=== PATIENT | female | born 1980 | race Caucasian/White ===

== ENCOUNTER 2017-04-12 21:44 | Inpatient (IN) | payer OTHER ==
[~2017-04-12] VITALS: Ht 177.8 cm; Wt 123.0 kg
--- NOTE | 2017-04-12 22:00 | NUR ---
PT WHEELED TO ROOM
--- NOTE | 2017-04-12 22:27 | NUR ---
REMOVED DRESSING FROM LEFT FOOT. NOTED APPROXIMATELY 4 MM ROUND LESION ON LATERAL PLANTAR SURFACE.
[2017-04-12 22:31] LABS: HEMOGLOBIN 13.7 g/dl (12.0-16.0); IMMATURE GRANULOCYTES 0.6 % (0.0-1.0); MEAN CELL VOLUME 84.7 fL CALC (80.0-100.0); MEAN CORPUSCULAR HGB 28.3 pG CALC (26.0-32.0); MEAN CORPUSCULAR HGB CONC 33.4 g/L CALC (32.0-36.0); NEUT# 10.3 thou/uL (2.00-7.15); RED BLOOD COUNT 4.84 mill/uL (4.20-5.60); RED CELL DISTRI WIDTH 14.5 % (11.5-15.5)
[2017-04-12 22:37] LABS: ALBUMIN 4.4 g/dL (3.2-5.0); ALKALINE PHOSPHATASE 105 u/l (38-126); ANION GAP 17 (6-22 (CALC)); BILIRUBIN, TOTAL 0.4 mg/dL (0.0-1.4); BUN 10 mg/dL (7-17); BUN/CREATININE RATIO 15 (12-20 (CALC)); CARBON DIOXIDE 26 mmol/l (22-30); CHLORIDE 101 mmol/l (95-108); CREATININE 0.6 mg/dL (0.5-1.0); GFR > 60 ML/MIN (>=60 (CALC)); GFR FOR AFR.AMER. > 60 ML/MIN (>=60 (CALC)); POTASSIUM 4.1 mmol/l (3.5-5.1); SGOT/AST 38 u/l (14-36); SGPT/ALT 58 u/l (9-52); SODIUM 140 mmol/l (137-146); TOTAL PROTEIN 7.5 g/dL (6.3-8.2)
--- NOTE | 2017-04-12 23:30 | NUR ---
RESTING QUIETLY IN NO APPARENT DISTRESS.
[2017-04-12] MEDS ORDERED: LISINOPRIL10 M1 PO (23:39)
[2017-04-12] MEDS ORDERED: METFORMIN HCL850 MG PO (23:39)
[2017-04-12] MEDS ORDERED: GLIMEPIRIDE4 MG PO (23:40)
[2017-04-12] MEDS ORDERED: LEVOTHYROXIN88 MC1 PO (23:41)
--- NOTE | 2017-04-13 00:19 | NUR ---
Admission Note Report Given to: DONNA OBREGON Transported by: Wheelchair X Stretcher Transported with: X Nurse Transporter X Patent IV O2 Interior Horticulturist
[2017-04-13 00:25] VITALS: BP 160/87
--- NOTE | 2017-04-13 00:25 | NUR ---
PT ARRIVED TO UNIT VIA STRETCHER WITH ER STAFF. AMBULATED TO BED WITH A LIMP. C/O SEVERE PAIN 10/10 TO LEFT FOOT. RESPIRATIONS EVEN AND UNLABORED ON ROOM AIR. ORIENTED TO ROOM AND CALL LIGHT SYSTEM. PLAN OF CARE DISCUSSED INCLUDING PODIETRY CONSULT. PT ENCOURAGED TO VERBALIZE CONCERNS. STATES UNDERSTANDING. SAFETY MEASURES IN PLACE. CALL LIGHT WITHIN REACH.
--- NOTE | 2017-04-13 00:25 | NUR ---
ART INFUSING WITH VANCO TO FOLLOW. TRANSPORTED TO FLOOR.
--- NOTE | 2017-04-13 01:51 | NUR ---
DIABETIC ULCER TO LATERAL ASPECT OF LEFT FOOT CLEANSED WITH NS AND NEW DRESSING APPLIED WITH TELFA AND KERLEX. WOUND IS CURRENLTY NOT DRAINING; ED STATES THERE WAS A LARGE AMOUNT OF SEROUS DRAINAGE. PHOTO OF ULCER IN CHART. PECOCET WAS GIVEN FOR FOOT PAIN; PT STATES THAT IT WAS NOT EFFECTIVE. NONPHARMACEUTICAL INTERVENTIONS IN PLACE TO ALLEVIATE PAIN; WILL REASSESS. IV ABT INFUSING AT THIS TIME; NO ADVERSE EFFECTS NOTED; SHE DOES HAVE SOME FACIAL FLUSHING. UP TO BATHROOM TO VOID. SAFETY MEASURES IN PLACE. CALL LIGHT WITHIN REACH.
[2017-04-13 04:00] VITALS: BP 119/67
[2017-04-13 04:05] LABS: URINE BILIRUBIN - DIPSTICK NEGATIVE (NEGATIVE); URINE BLOOD DIPSTICK NEGATIVE (NEGATIVE); URINE COLOR YELLOW; URINE GLUCOSE - DIPSTICK >=1000 mg/dL (NEGATIVE); URINE KETONE TRACE mg/dL (NEGATIVE); URINE LEUK ESTERASE NEGATIVE (Negative); URINE NITRITE - DIPSTICK NEGATIVE (Negative); URINE PROTEIN - DIPSTICK NEGATIVE (NEG-TRACE); URINE UROBILINOGEN - DIPSTICK 0.2 E.U./dL (0.2)
[2017-04-13 04:07] LABS: URINE CLARITY CLEAR
[2017-04-13 04:08] LABS: BARBITURATES NEGATIVE (NEGATIVE); COCAINE NEGATIVE (NEGATIVE); METHADONE NEGATIVE (NEGATIVE); OXCYCODONE NEGATIVE (NEGATIVE); TETRAHYDROCANNABIONOL NEGATIVE (NEGATIVE); TRICYLIC ANTIDEPRESSANTS NEGATIVE (NEGATIVE)
--- NOTE | 2017-04-13 04:10 | NUR ---
PT RESTING IN BED WITH EYES CLOSED. LEFT FOOT ELEVATED ON A PILLOW. CONTINUES TO C/O PAIN TO ULCER SITE. RESPIRATIONS EVEN AND UNLABORED ON ROOM AIR. IV SITE APPEARS HEALTHY AND FLUSHES. SAFETY MEASURES IN PLACE. CALL LIGHT WITHIN REACH.
[2017-04-13 06:30] LABS: HEMATOCRIT 34.9 % (37.0-47.0); HEMOGLOBIN 11.8 g/dl (12.0-16.0); MEAN CELL VOLUME 84.1 fL CALC (80.0-100.0); MEAN CORPUSCULAR HGB 28.4 pG CALC (26.0-32.0); MEAN CORPUSCULAR HGB CONC 33.8 g/L CALC (32.0-36.0); RED BLOOD COUNT 4.15 mill/uL (4.20-5.60); RED CELL DISTRI WIDTH 14.5 % (11.5-15.5)
[2017-04-13 06:42] LABS: ANION GAP 13 (6-22 (CALC)); BUN 7 mg/dL (7-17); BUN/CREATININE RATIO 13 (12-20 (CALC)); CARBON DIOXIDE 26 mmol/l (22-30); CHLORIDE 103 mmol/l (95-108); CREATININE 0.6 mg/dL (0.5-1.0); GFR > 60 ML/MIN (>=60 (CALC)); GFR FOR AFR.AMER. > 60 ML/MIN (>=60 (CALC)); POTASSIUM 4.1 mmol/l (3.5-5.1); SODIUM 138 mmol/l (137-146)
--- NOTE | 2017-04-13 06:45 | NUR ---
CONSULT CALLED FOR DR. RIOS.
[2017-04-13 08:45] VITALS: BP 102/45
--- NOTE | 2017-04-13 08:45 | NUR ---
ASSESSMENT IS COMPLETED: IV SITE IS FREE FROM REDNESS OR EDEMA. NO DISTRESS NOTED. DRESSING ON LEFT FOOT IS CDI. CONTINUE TO OBSERVE AND MONITOR
--- NOTE | 2017-04-13 09:00 | NUR ---
AND CAME IN AND DID A SWAB OF THE LEFT FOOT. IV SITE IS FREE FROM REDNESS OR EDEMA. SENDING C&S TO LAB
--- NOTE | 2017-04-13 11:01 | NUR ---
S: ERIK HYLTON is a 36 F who presents with cellulitis of the left foot. She has a history of diabetic foot ulcer and osteomyelitis. All medications in patient's chart were reviewed. O: VS: BP 102/45, P 92, RR 20, T 97.9 W 123 kg, HT 70 in, Scr=0.6, CrCl= 137.5 ml/min A: Blood culture is pending. Urine culture is pending. Wound culture is pending. P: Patient is on Zosyn 3.375 g IV q6h. Vancomycin ordered for pharmacy to dose. Start Vancomycin 1500 mg IV Q8H. Vancomycin trough is drawn before the 4th dose on 04/14 @0930. Vancomycin goal trough is between 10-20 mcg/ml. Pharmacy will follow and or advise on antibiotics use as needed.
--- NOTE | 2017-04-13 12:40 | NUR ---
PT IS RESTING IN BED WITH NO DISTRESS NOTED. IV SITE IS FREE FROM REDNESS OR EDEMA. CONTINUE TO OSBERVE AND MONITOR.
[2017-04-13 15:45] VITALS: BP 122/82
--- NOTE | 2017-04-13 16:30 | NUR ---
PT HAS BEEN RELAXING IN BED NO DISTRESS NOTED. IV SITE IS FREE FROM REDNESS OR EDEMA.
--- NOTE | 2017-04-13 18:41 | NUR ---
PT SIGNED CONSENT FOR SURGERY IN THE AM. OR CREW WAS ALREADY NOTIFIED, AND ANESTHESIA CAME AND SPOKE TO THE PT.
[2017-04-13 19:45] VITALS: BP 149/89
--- NOTE | 2017-04-13 20:00 | NUR ---
PATIENT RESTING IN BED AT THIS TIME-AWAKE ALERT AND ORIENTEDX3 C/O LEFT FOOT PAIN. PATIENT MEDICATED WITH PERCOCET 1 TABLET ORDERED FOR PAINT. PATIENT WITH IV VANCO INFUSING AT THIS TIME VIA LEFT AC SITE-SITE APPEARS HEALTHY AT THIS TIME. LEFT FOOT DRESSING INTACT AND SECURED WITH MARTHA WRAP. TOES ARE COOL TO TOUCH-PATIENT ABLE TO MOVE TOES AND HAS PAIN. ENCOURAGED PATIENT TO ELEVATED FOOT ON PILLOWS. INSTRUCTED PATIENT WILL BE NPO AFTER MIDNIGHT FOR OR IN AM. VERBALIZES UNDERSTANDING. SAFETY PRECAUTIONS REINFORCED.CALL LIGHT IN REACH. WILL CONT TO MONITOR.
--- NOTE | 2017-04-13 23:00 | NUR ---
IV SITE TO LEFT AC DISLODGED AND D/C. NEW IV SITE STRTED TO LEFT HAND WITH GOOD BLOOD RETURN. PATIENT UP TO THE BR. WILL CONT TO MONITOR.
[2017-04-14] VITALS (10 sets, daily range): BP systolic 132–153; BP diastolic 56–88
--- NOTE | 2017-04-14 00:15 | NUR ---
PATIENT MEDICATED FOR LEFT FOOT PAIN WITH PERCOCET 1 TABLET. PATIENT NOTIFIED OF NPO STATUS AFTER MIDNIGHT. VERBALIZES UNDERSTANDING. IVF NS HUNG AND INFUSING AT 125CC/HR ORDERED. ZOSYN GIVEN ORDERED. CALL LIGHT IN REACH. WILL CONT TO MONITOR.
--- NOTE | 2017-04-14 05:07 | NUR ---
PATIENT C/O LEFT FOOT PAIN-10/10 ON PAIN SCALE. PATIENT MEDICATED FOR PAIN WITH PERCOCET 1TAB WITH SIP OF H2O. CALL LIGHT IN REACH. WILL CONT TO MONITOR.
[2017-04-14 05:10] LABS: HEMATOCRIT 33.9 % (37.0-47.0); HEMOGLOBIN 11.4 g/dl (12.0-16.0); MEAN CELL VOLUME 84.1 fL CALC (80.0-100.0); MEAN CORPUSCULAR HGB 28.3 pG CALC (26.0-32.0); MEAN CORPUSCULAR HGB CONC 33.6 g/L CALC (32.0-36.0); RED BLOOD COUNT 4.03 mill/uL (4.20-5.60); RED CELL DISTRI WIDTH 14.4 % (11.5-15.5)
[2017-04-14 05:37] LABS: ANION GAP 14 (6-22 (CALC)); BUN 5 mg/dL (7-17); BUN/CREATININE RATIO 11 (12-20 (CALC)); CARBON DIOXIDE 24 mmol/l (22-30); CHLORIDE 106 mmol/l (95-108); CREATININE 0.5 mg/dL (0.5-1.0); GFR > 60 ML/MIN (>=60 (CALC)); GFR FOR AFR.AMER. > 60 ML/MIN (>=60 (CALC)); POTASSIUM 3.9 mmol/l (3.5-5.1); SODIUM 139 mmol/l (137-146)
--- NOTE | 2017-04-14 07:30 | NUR ---
INQUIRED WITH FRETTED INSTRUMENTS INSPECTOR ABOUT READING OF THE CT SCAN PERFORMED YESTERDAY. SHE WILL CALL RADIOLOGIST TODAY. PT IS SET FOR OR AT 9AM.
--- NOTE | 2017-04-14 07:45 | NUR ---
ASSESSMENT IS COMPLTED: IV SITE IS FREE FROM REDNESS OR EDEMA. NO DISTRESS NOTED. BREATH SOUNDS ARE CLEAR,BILATERALLY. HR IS REG,PULSES ARE STRONG. CONTINUE TO OSBERVE AND MONITOR.
--- NOTE | 2017-04-14 09:11 | NUR ---
PT TRANSPORTED TO OR VIA STRETCHER ACCOMPANIED BY STAFF. IV SITE IS FREE FROM REDNESS OR EDEMA.
--- NOTE | 2017-04-14 11:10 | NUR ---
PT RETURNED FROM OR VIA STRETCHER ACCOMPANIED BY STAFF.IV SITE IS FREE FROM REDNESS OR EDEMA. THEY HAVE A 2ND IV SITE IN RFA WITH #20. SCD IN PLACE. DRESSING ON ;LEFT FOOT IS CDI. CONTINUE TO OSBERVE AND MONITOR.
--- NOTE | 2017-04-14 12:30 | NUR ---
PT IS RESTING IN BED WITH NO DISTRESS NOTED. IV SITE IS FREE FROM REDNESS OR EDEMA. DRESSING ON LEFT FOOT IS CDI, CONTINUE TO OSBERVE AND MONITOR.
--- NOTE | 2017-04-14 13:49 | NUR ---
S: ERIK HYLTON is a 36 F who presents with cellulitis of the left foot. All medications in patient's chart were reviewed. O: VS: BP: 130/67mmHg, P: 90: beats/min, RR: 17 breaths/min, Tmax (24h): 98.6 Wt: 123kg, Ht: 70in, Adj.BW: 90.3kg, SCr: 0.5, CrCl: 180 ml/min (based on C-G equation using Adj. BW) A: Blood culture is pending. Urine culture is pending. Wound culture is pending, preliminary showing many Gram + cocci in pairs plus Gram negative rods. P: Patient is on Zosyn 3.375 g IV q6h. Vancomycin ordered for pharmacy to dose. Continue Vancomycin 1500 mg IV Q8H. Vancomycin trough will be drawn on 04/15 @ 0930, 30 minutes prior to 1000 dose. Vancomycin goal trough remains 10-20 mcg/ml. Pharmacy will continue to follow and adjust dosage as needed. Thank you for the consult.
--- NOTE | 2017-04-14 16:45 | NUR ---
PT IS RELAXING IN BED WITH SOME DISCOMFORT DUE TO HAVING TO GET UP AND VOID. IV SITE IS FREE FROM REDNESS OR EDEMA. CONTINUE TO OBSERVE AND MONITOR.
--- NOTE | 2017-04-14 19:33 | NUR ---
PATIENT SITTING ON THE SIDE OF THE BED AT THIS TIME TALKING ON THE PHONE. LEFT FOOT IS HANGING DOWN-ENCOURAGED PATIENT TO KEEP FOOT ELEVATED MUCH POSSIBLE FOR SWELLING AND COMFORT. DRESSING TO LEFT FOOT INTACT AND SECURED BY MATRHA WRAP. CALL LIGHT IN REACH. WILL CONT TO MONITOR.
--- NOTE | 2017-04-14 22:24 | NUR ---
PATIENT RESTING IN BED WITH LEFT FOOT ELEVATED ON PILLOWS. DRESSING TO LEFT FOOT CDI AND SECURED WITH MARTHA WRAP. CMS TO LEFT TOES WNL. PATIENT MEDICATED FOR POST-OP PAIN TO LEFT FOOT WITH PERCOCET 5/325MG PO FOR 8/10 ON PAIN SCALE. IV SITE TO LEFT HAND D/KATLIN. IV SITE TO RIGHT AC INTACT WITH IVF NS PATENT AND INFUSING AT 125CC/HR. SITE APPEARS HEALTHY AT THIS TIME. PATIENT ENCOURAGED TO USE IS Q1H WHILE AWAKE. DEMONSTRATE ABILITY TO USE. PATIENT VOIDOING QS CLEAR YELLOW URINE ON BSC-NWB STATUS MAINTAINED WITH PATIENT USING WALKER TO TRANSFER IN AND OUT OF BED. SAFETY PRECAUTIONS REINFORCED. CALL LIGHT IN REACH. WILL CONT TO MONITOR.
--- NOTE | 2017-04-15 02:00 | NUR ---
PATIENT RESTING IN BED WITH LEFT FOOT ELEVATED ON PILLOWS. IV VANCO HUNG ORDERED. IV SITE REMAINS HEALTHY AT THIS TIME. CALL LIGHT IN REACH. WILL CONT TO MONITOR.
--- NOTE | 2017-04-15 03:56 | NUR ---
APPEARS SLEEPING AT THIS TIME WITH LEFT FOOT ELEVATED ON PILLOWS. IV VANCO INFUSING ORDERED. CALL LIGHT IN REACH. WILL CONT TO MONITOR.
[2017-04-15 04:16] VITALS: BP 144/88
--- NOTE | 2017-04-15 05:15 | NUR ---
PATIENT VOMITTED SMALL AMT OF GREEN BILE. PATIENT MEDICATED WITH ZOFRAN 4MG IVP FOR NAUSEA AND VOMITTING. MEDICATED FOR PAIN WITH MORPHINE 2MG IVP FOR 10/10 PAIN LEFT FOOT. UP TO THE BSC TO VOID. CALL LIGHT IN REACH. WILL CONT TO MONITOR.
[2017-04-15 05:34] LABS: HEMATOCRIT 33.6 % (37.0-47.0); HEMOGLOBIN 11.1 g/dl (12.0-16.0); MEAN CELL VOLUME 85.9 fL CALC (80.0-100.0); MEAN CORPUSCULAR HGB 28.4 pG CALC (26.0-32.0); RED BLOOD COUNT 3.91 mill/uL (4.20-5.60); RED CELL DISTRI WIDTH 14.6 % (11.5-15.5)
[2017-04-15 05:42] LABS: ANION GAP 15 (6-22 (CALC)); BUN 6 mg/dL (7-17); BUN/CREATININE RATIO 9 (12-20 (CALC)); CARBON DIOXIDE 22 mmol/l (22-30); CHLORIDE 109 mmol/l (95-108); CREATININE 0.6 mg/dL (0.5-1.0); GFR > 60 ML/MIN (>=60 (CALC)); GFR FOR AFR.AMER. > 60 ML/MIN (>=60 (CALC)); POTASSIUM 3.9 mmol/l (3.5-5.1); SODIUM 141 mmol/l (137-146)
--- NOTE | 2017-04-15 08:00 | NUR ---
Report received from Karoline Polo RN. Pt assessment completed. Pt asleep when entered room, easily awoken. A&O x3. Lungs clear all parry. HR elevated 99 BPM. Primary nurse notified. Pt states no flatus since yesterday prior to surgery, bowel sounds are hypoactive x4. No BM since 04/12/2017. Complains of "stomach ache" and nausea, last medicated with Zofran IV @ 05:10am. Abdomen is soft & non-distended. Pt complains of pain in post-operative left foot, throbbing ("with every heartbeat"), 10/18, pt. was last medicated with Morphine Sulfate IV @ 05:10am. Primary nurse notified. Pedal pulse in right foot is strong, popliteal pulse in left leg is strong. Mild, non-pitting edema noted in left leg. Post-operative foot covered with clean, intact epi bandage, no visible drainage. Pt is NWB to left foot, up to BSC using walker with supervision. All safety measures in place, personal items and call light within reach. Bed in low position.
[2017-04-15 08:30] VITALS: BP 153/86
--- NOTE | 2017-04-15 09:11 | NUR ---
ASSESSMENT COMPLETED WITH PT. IV SITE IS FREE FROMR EDNESS OR EDEMA. PT HAS DRESSING ON LEFT FOOT IS CDI.BREATH SOUNDS ARE CLEAR.BILATERALLY. PT HAS PAIN STATED" MORPHINE DOESNOT HELP. ". CONTINUE TO OSEBRVE AND MONITOR.
[2017-04-15 09:15] VITALS: BP 150/59
[2017-04-15 11:00] VITALS: BP 131/77
--- NOTE | 2017-04-15 12:40 | NUR ---
PT WENT FOR A PICC LINE PLACEMENT IN RADIOLOGY, PLACED ON MELI. THEN PT ASKED UPON RETURN IF THE RFA IV SITE COULD BE DC'D. REMOVED THE RFA IV SITE . PT STATED" IT HURTS BUT IS BETTER NOW THAT ITIS OUT. ALSO IF WE HAVE AN EXTENSION LINE TO PLACE ON THE PICC LINE WHEN I GO HOME THEN I CAN ADMINISTER MY OWN ABT.".INFORMD THAT WE WOULD HAVE TO CHECK ON THE EXTENSION.
[2017-04-15 15:46] VITALS: BP 150/59
--- NOTE | 2017-04-15 16:00 | NUR ---
REMEDICATED HER WITH PAIN MEDS. SPOKE WITH RE: SURGERY TOMORROW IN THE AM AND INCREASING PAIN MEDICATION DOSAGE. WILL PLACE PT ON NPO FOR TONSRINI SPOKE WITH PHILOMENA HENRY RN FROM OR ON THE UNIT ABOUT ADDING A CASE. CONTINUE TO OBSERVE AND MONITOR.
--- NOTE | 2017-04-15 17:07 | NUR ---
Patient feels okay. complains of nausea pertaining to anesthesia medications; patient is currently on Zofran for Nausea. Chest is clearing up with breathing meds.c
[2017-04-15 19:00] VITALS: BP 150/77
--- NOTE | 2017-04-16 01:01 | NUR ---
PATIENT FINISHED GETTING WASHED UP. INSTRUCTED THAT SHE IS NPO FOR OR THIS MORNING. VERBALIZES UNDERSTANDING. PATIENT MEDICATED FOR LEFT FOOT PAIN WITH PERCOCET AND SIP OF H2O. PICC INTACT TO RIGHT UPPER ARM WITH NS PATENT AND INFUSING AT 125CC/HR. DRESSING TO LEFT FOOT INTACT AND SECURED WITH MARTHA WRAP. ENCOURAGED PATIENT TO KEEP LEFT FOOT ELEVATED ON PILLOWS. FREQUENT FIND PATIENT WITH LEFT FOOT DEPENDENT. REINFORCED NWB STATUS WITH THE WALKER. SAFETY PRECAUTIONS REINFORCED. CALL LIGHT IN REACH. WILL CONT TO MONITOR.
[2017-04-16 06:40] VITALS: BP 123/73
--- NOTE | 2017-04-16 08:00 | NUR ---
PT RESTS IN THE BED, LEFT FOOT DRESSING IN PLACE. PT SCHEDULED FOR OR TODAY. ACTIVE BOWEL SOUNDS, BUT PT STATES THAT SHE HAS SEVERE CONSTIPATION, NO BM SINCE SATURDAY. MORNING INSULIN COVERAGE HELD PER NPO, BS 210.
[2017-04-16 11:15] VITALS: BP 119/51
--- NOTE | 2017-04-16 12:00 | NUR ---
PT SEEN RESTING IN BED, HAS SIGNED INFORMED CONSENT FOR APPROACHING PROCEDURE. NO CHANGE IN STATUS, STABLE BEFORE.
--- NOTE | 2017-04-16 13:50 | NUR ---
PT WAS SEEN SITTING ON THE EDGE OF BED. STATES THAT SHE COULD NOT TOLERATE PHYSICAL THERAPY AT THIS TIME DUE TO SEVERE PAIN PS 10/10 OF ANKLE.
--- NOTE | 2017-04-16 15:35 | NUR ---
PT LEAVES AT THIS TIME FOR THE OPERATING ROOM.
--- NOTE | 2017-04-16 16:28 | NUR ---
PT WAS NAUSEATED PRIOR TO DEPARTURE FOR OR, ALSO FELT ACID SENSATION IN STOMACH, PROVIDED WITH PROTONIX AND ZOFRAN PRIOR TO DEPARTURE TO OR.
[2017-04-16 18:25] VITALS: BP 151/73
[2017-04-16 19:10] VITALS: BP 154/99
[2017-04-16 19:40] VITALS: BP 152/74
--- NOTE | 2017-04-16 20:00 | NUR ---
PATIENT SITTING UP ON THE SIDE OF THE BED WITH POST-OP LEFT FOOT HANGING OFF THE BED-ENCOURAGED PATIENT TO KEEP THE AFFECTED LIMB ELEVATED ON PILLOW. PATIENT WITH PICC TO RIGHT UPPER ARM WITH IVF NS PATENT AND INFUSING AT 125CC/HR. SITE APPEARS HEALTHY AT THIS TIME. LEFT FOOT DRESSING IS CDI AND SECURED WITH MARTHA WRAP. POPLITEAL PULSE IS STRONG. LUNGS ARE CLEAR. O2 VIA NASAL CANNULA IN PLACE. UP TO THE BSC TO VOID AND HAD MODERATE AMT OF STOOL. BACK IN BED. SAFETY PRECAUTIONS REINFORCED.CALL LIGHT IN REACH. WILL CONT TO MONITOR.
[2017-04-16 20:40] VITALS: BP 168/85
--- NOTE | 2017-04-17 | NUR ---
PATIENT APPEARS SLEEPING AT THIS TIME WITH HOB ELEVATED. IVF PATENT AND INFUSING VIA RIGHT UPPER ARM PICC AT 125CC/HR. CALL LIGHT IN REACH. WILL CONT TO MONITOR.
[2017-04-17 00:08] VITALS: BP 133/80
[2017-04-17 03:55] VITALS: BP 122/62
[2017-04-17 04:47] LABS: HEMATOCRIT 29.5 % (37.0-47.0); HEMOGLOBIN 9.8 g/dl (12.0-16.0); IMMATURE GRANULOCYTES 0.7 % (0.0-1.0); MEAN CELL VOLUME 86.8 fL CALC (80.0-100.0); MEAN CORPUSCULAR HGB 28.8 pG CALC (26.0-32.0); MEAN CORPUSCULAR HGB CONC 33.2 g/L CALC (32.0-36.0); NEUT# 6.74 thou/uL (2.00-7.15); RED BLOOD COUNT 3.4 mill/uL (4.20-5.60); RED CELL DISTRI WIDTH 14.6 % (11.5-15.5)
--- NOTE | 2017-04-17 04:50 | NUR ---
PATIENT RESTING IN BED WITH LEFT FOOT ELEVATED ON PILLOWS. AM LABS DRAWN FROM RIGHT UPPER ARM PICC-GOOD BLOOD RETURN. FLUSHED PER [facility] PROTOCOL. PATIENT MEDICATED FOR C/O POST-OP PAIN TO LEFT FOOT-11/18 WITH PERCOCET 10/325MG PO. SAFETY PRECAUTIONS REINFORCED. CALL LIGHT IN REACH. WILL CONT TO MONITOR.
[2017-04-17 05:12] LABS: ANION GAP 16 (6-22 (CALC)); BUN 8 mg/dL (7-17); BUN/CREATININE RATIO 10 (12-20 (CALC)); CARBON DIOXIDE 22 mmol/l (22-30); CHLORIDE 108 mmol/l (95-108); CREATININE 0.7 mg/dL (0.5-1.0); GFR > 60 ML/MIN (>=60 (CALC)); GFR FOR AFR.AMER. > 60 ML/MIN (>=60 (CALC)); MAGNESIUM 1.8 mg/dL (1.6-2.3); SODIUM 142 mmol/l (137-146)
[2017-04-17 08:15] VITALS: BP 134/62
--- NOTE | 2017-04-17 08:15 | NUR ---
assessment is completed: no distress noted. iv site is free from redness or edema. dressing on left foot is cdi. continue toobserve and momniitor.
--- NOTE | 2017-04-17 12:11 | NUR ---
PT IS RELAXING IN THE BED WITH NO DISTRESS NOTED. IV SITE IS FREE FROM REDNESS OR EDEMA. CONTINUE TO OBSERVE AND MONITOR.
--- NOTE | 2017-04-17 12:27 | NUR ---
PT WAS OOB INDEPENDENTLY. AMBULATED IN THE ROOM ~30 FT. X 2 WITH RW AND SBA TO ENSURE SAFETY. PT APPEARED STABLE DURING THE AMBULATION. INDEPENDENT- MOD. INDEPENDENT ON ALL BED MOBILITY, TRANSFERS AND AMBULATION. SPO2 SLIGHTLY DECREASED FROM 98% WITH O2 VIA NASAL CANNULA TO 92% ON ROOM AIR AT THE END OF ACTIVITIES. LEFT PT COMFORTABLY SUPINE ON BED WITH R LE ELEVATED ON PILLOWS, CALL BANEGAS WITHIN REACH. NO ADVERSE REACTIONS NOTED OR REPORTED.
[2017-04-17 16:00] VITALS: BP 124/71
[2017-04-17] MEDS ORDERED: PEPCID20 MG PO (17:57)
[2017-04-17] MEDS ORDERED: GABAPENTIN300 M2 PO (17:57)
[2017-04-17] MEDS ORDERED: ROCEPHIN 2 GM2 GM IV (17:57)
--- NOTE | 2017-04-17 18:51 | NUR ---
DISCHARGE INSTRUCTIONS GIVEN AND VERBALIZED UNDERSTANDING. IV SITE FLUSHED AND COVERED WITH NETTING . PT TOLERATED WELL. DRESSING ON LEFT FOOT IS CDI. Discharge instructions given. Patient verbalizes understanding of same. Discharged in stable condition via Wheelchair to Home with family. All belongings sent with pt.
== END 2017-04-17 18:50 | disposition home or self-care (01) | DRG 629 ==
LOC: ED 21:44 → ED-I 23:36 → ED 23:45 → MS2 23:46
PROVIDERS: Emergency Medicine; Nurse Practitioner Family; ADMIT Internal Medicine; ATTEND Internal Medicine
PROC: 3E0234Z Introduction of Serum, Toxoid and Vaccine into Muscle, Percutaneous Approach (ICD-10-PCS; 2017-04-13)
PROC: 0QBP0ZZ Excision of Left Metatarsal, Open Approach (ICD-10-PCS; principal; 2017-04-14)
PROC: 0QBR0ZZ Excision of Left Toe Phalanx, Open Approach (ICD-10-PCS; 2017-04-14)
PROC: 0J9R0ZZ Drainage of Left Foot Subcutaneous Tissue and Fascia, Open Approach (ICD-10-PCS; 2017-04-14)
PROC: 02HV33Z Insertion of Infusion Device into Superior Vena Cava, Percutaneous Approach (ICD-10-PCS; 2017-04-15)
PROC: B518ZZA Fluoroscopy of Superior Vena Cava, Guidance (ICD-10-PCS; 2017-04-15)
PROC: 0JDR0ZZ Extraction of Left Foot Subcutaneous Tissue and Fascia, Open Approach (ICD-10-PCS; 2017-04-16)
PROC: 0HQNXZZ Repair Left Foot Skin, External Approach (ICD-10-PCS; 2017-04-16)
DX: E11.69 Type 2 diabetes mellitus with other specified complication (principal); L03.116 Cellulitis of left lower limb; M86.9 Osteomyelitis, unspecified; E11.42 Type 2 diabetes mellitus with diabetic polyneuropathy; E11.621 Type 2 diabetes mellitus with foot ulcer; L02.612 Cutaneous abscess of left foot; E11.628 Type 2 diabetes mellitus with other skin complications; E11.65 Type 2 diabetes mellitus with hyperglycemia; L97.529 Non-pressure chronic ulcer of other part of left foot with unspecified severity; I10 Essential (primary) hypertension; E03.9 Hypothyroidism, unspecified; E28.2 Polycystic ovarian syndrome; B96.89 Other specified bacterial agents as the cause of diseases classified elsewhere; B95.61 Methicillin susceptible Staphylococcus aureus infection as the cause of diseases classified elsewhere; Z23 Encounter for immunization
CPT/HCPCS: J1100; J1650; J3370; S0164

== ENCOUNTER 2017-05-13 12:34 | Inpatient (IN) | payer OTHER ==
[~2017-05-13] VITALS: Ht 177.8 cm; Wt 115.7 kg
[~2017-05-13 12:34] MED LIST: GABAPENTIN300 M2 PO; GLIMEPIRIDE4 MG PO; LEVOTHYROXIN88 MC1 PO; LISINOPRIL10 M1 PO; METFORMIN HCL850 MG PO; PEPCID20 MG PO; ROCEPHIN 2 GM2 GM IV
[2017-05-13 12:50] VITALS: BP 137/95
--- NOTE | 2017-05-13 12:50 | NUR ---
PT IS DIRECT ADMIT. CAME WITH KNEE WALKER. VS AND WEIGHT OBTAINED. ORIENTED TO CALL LIGHT AND SAFETY PRECAUTIONS REINFORCED. PT VERBALIZED UNDERSTANDING.
[2017-05-13 13:15] LABS: MEAN CELL VOLUME 82.6 fL CALC (80.0-100.0); MEAN CORPUSCULAR HGB 26.9 pG CALC (26.0-32.0); MEAN CORPUSCULAR HGB CONC 32.6 g/L CALC (32.0-36.0); RED BLOOD COUNT 5.05 mill/uL (4.20-5.60); RED CELL DISTRI WIDTH 13.7 % (11.5-15.5)
[2017-05-13 13:23] LABS: HEMATOCRIT 41.7 % (37.0-47.0); HEMOGLOBIN 13.6 g/dl (12.0-16.0)
--- NOTE | 2017-05-13 13:43 | NUR ---
PT IS SITTING IN CHAIR. ASSESSMENT DONE . RESPS EVEN AND UNLABORED. PT HAS LEFT FOOT WRAP PER HER FOOT DOCTOR AND TRACING OF EDEMA NOTED.
[2017-05-13 13:52] LABS: PROTHROMBIN TIME 10.7 SECONDS (9.0-12.5)
[2017-05-13 13:55] LABS: ALBUMIN 4.7 g/dL (3.2-5.0); ALKALINE PHOSPHATASE 111 u/l (38-126); ANION GAP 21 (6-22 (CALC)); BILIRUBIN, TOTAL 0.5 mg/dL (0.0-1.4); BUN 28 mg/dL (7-17); BUN/CREATININE RATIO 33 (12-20 (CALC)); CARBON DIOXIDE 25 mmol/l (22-30); CHLORIDE 100 mmol/l (95-108); CREATININE 0.9 mg/dL (0.5-1.0); GFR > 60 ML/MIN (>=60 (CALC)); GFR FOR AFR.AMER. > 60 ML/MIN (>=60 (CALC)); POTASSIUM 4.4 mmol/l (3.5-5.1); SGOT/AST 38 u/l (14-36); SGPT/ALT 50 u/l (9-52); SODIUM 142 mmol/l (137-146)
[2017-05-13] MEDS ORDERED: JARDIANCE10 MG PO (14:30)
[2017-05-13] MEDS ORDERED: HYDROCHLOROTH12.5 M1 PO (14:32)
[2017-05-13] MEDS ORDERED: LIPITOR10 M1 PO (14:32)
[2017-05-13 14:45] LABS: URINE BILIRUBIN - DIPSTICK NEGATIVE (NEGATIVE); URINE BLOOD DIPSTICK LARGE (NEGATIVE); URINE COLOR YELLOW; URINE GLUCOSE - DIPSTICK >=1000 mg/dL (NEGATIVE); URINE KETONE NEGATIVE (NEGATIVE); URINE LEUK ESTERASE NEGATIVE (Negative); URINE NITRITE - DIPSTICK NEGATIVE (Negative); URINE PH 5.5 (4.5-8.0); URINE PROTEIN - DIPSTICK NEGATIVE (NEG-TRACE); URINE SPECIFIC GRAVITY 1.015; URINE UROBILINOGEN - DIPSTICK 0.2 E.U./dL (0.2)
[2017-05-13 14:53] LABS: URINE CLARITY CLEAR
[2017-05-13 14:58] LABS: URINE RBC 25-50 RBC/hpf (0-5); URINE SQUAMOUS EPITHELIAL CELL RARE EPI/hpf (0-FEW); URINE WBC 0-2 WBC/hpf (0-5)
--- NOTE | 2017-05-13 16:00 | NUR ---
PT IS SITTING IN COUCH SUING HER CELL PHONE . PT DENIES NEEDS AT THIS TIME.
--- NOTE | 2017-05-13 16:07 | NUR ---
Spoke to pt for med education rounds. Pt requested something for her GERD. Order was put in for pepcid IV. Explained bleeding risk with lovenox. Pt is currently menstrating and was concerned. Pt was assured she will bleed more but it's necessary for DVT treatment. Pt was strongly recommended to start insulin upon discharge. Barriers to compliance include dislike of needles and uncertainty of cost. Pt may have recently lost her insurance, notes she was just fired last month.
[2017-05-13 19:10] VITALS: BP 129/85
--- NOTE | 2017-05-13 20:00 | NUR ---
PATIENT UP IN THE ROOM WITH KNEE WALKER. ALERT AND ORIENTEDX3. PATIENT WITH DRESSING TO LEFT FOOT INTACT AND SECURED WITH MARTHA WRAP. ENCOURAGED PATIENT TO KEEP ELEVATED WITH IN BED. PATIENT CURRENTLY BEING TREATED FOR OSTEOMYLITIS DAILY IN IV THERAY. HAS PICC TO RIGHT ARM-WAS PAINFUL AND SWOLLEN WHEN SHE CAME FOR TREATMENT TODAY AND US REVEALED DVT. WILL DO FURTHER STUDIES IN AM. WILL NOT USE UNTIL AFTER STUDIES ARE DONE. HEP LOCK TO LEFT HAND INTACT AND APPEARS HEALTHY AT THIS TIME. PATIENT STATES THAT SHE WAS TO SEE DR. SEGURA TODAY AND HE DOES THE WEEKLY DRESSING CHANGES ON LEFT FOOT WOUND. SAFETY PRECAUTIONS REINFORCED. CALL LIGHT IN REACH. WILL CONT TO MONITOR.
--- NOTE | 2017-05-13 22:15 | NUR ---
C/O LEFT FOOT AND RIGHT ARM PAIN-MEDICATED WITH LORTAB 5/325MG PO FOR 8/10 ON PAIN SCALE. ENCOURAGE ELEVATIONS OF AFFECTED LIMBS. SAFETY PRECAUTIONS REINFORCED.CALL LIGHT IN REACH. WILL CONT TO MONITOR.
[2017-05-14 00:57] VITALS: BP 105/63
--- NOTE | 2017-05-14 03:00 | NUR ---
LOVENOX GIVEN ORDERED. NO COMPLAINTS AT THIS TIME. CALL LIGHT IN REACH. WILL CONT TO MONITOR.
[2017-05-14 04:28] VITALS: BP 99/66
--- NOTE | 2017-05-14 06:29 | NUR ---
APPEARS SLEEPING AT THIS TIME WITH EYES CLOSED. CALL LIGHT IN REACH. WILL CONT TO MONITOR.
[2017-05-14 06:36] LABS: HEMOGLOBIN 13.1 g/dl (12.0-16.0); IMMATURE GRANULOCYTES 0.5 % (0.0-1.0); MEAN CELL VOLUME 82.6 fL CALC (80.0-100.0); MEAN CORPUSCULAR HGB 27.1 pG CALC (26.0-32.0); MEAN CORPUSCULAR HGB CONC 32.8 g/L CALC (32.0-36.0); NEUT# 4.96 thou/uL (2.00-7.15); RED BLOOD COUNT 4.84 mill/uL (4.20-5.60); RED CELL DISTRI WIDTH 13.5 % (11.5-15.5)
[2017-05-14 06:53] LABS: ANION GAP 18 (6-22 (CALC)); BUN 22 mg/dL (7-17); BUN/CREATININE RATIO 28 (12-20 (CALC)); CARBON DIOXIDE 24 mmol/l (22-30); CHLORIDE 103 mmol/l (95-108); CREATININE 0.8 mg/dL (0.5-1.0); GFR > 60 ML/MIN (>=60 (CALC)); GFR FOR AFR.AMER. > 60 ML/MIN (>=60 (CALC)); MAGNESIUM 1.8 mg/dL (1.6-2.3); SODIUM 141 mmol/l (137-146)
--- NOTE | 2017-05-14 07:00 | NUR ---
SHIFT CHANGE REPORT FROM RUDY LITTLE SLEEPING BUT AROUSES TO VERBAL STIMULI, DENIES PAIN/DISCOMFORT AT THIS TIME, REQUESTING ORAL INTAKE AT THIS TIME, ART HANDLER INFORMED AND OK CLEAR LIQUID, WILL CONTINUE TO MONITOR, CALL BANEGAS IN REACH.
--- NOTE | 2017-05-14 07:00 | NUR ---
SHIFT CHANGE REPORT FROM RUDY LITTLE SLEEPING IN SUPINE POSITION, AROUSES TO VERBAL STIMULI, CO ACHING PAIN TO R. ARM AND THROBBING PAIN TO LEFT FOOT, CONCERNS ADDRESSED, WILL CONTINUE TO MONITOR, CALL BANEGAS IN REACH.
[2017-05-14 07:42] VITALS: BP 102/47
[2017-05-14 09:14] VITALS: BP 129/78
--- NOTE | 2017-05-14 12:57 | NUR ---
SITTING UP IN CHAIR AT THIS TIME AFTER RETURNING FROM IMAGING PROCEDURE, PT CAME TO EVALUATE AND TREAT, COMPUTER TRAINER IN ROOM NOW EDUCATING ON THERAPEURIC DIET, WILL CONTINUE TO MONITOR.
--- NOTE | 2017-05-14 13:24 | NUR ---
PT REPORTS SHE HAD APPOINTMENT WITH DR RIOS ON05/13/17 FOR DRESSING CHANGE BUT WAS UNABLE TO MAKE IN DUR TO PRESENT HOSPITALIZATION, WILL INFORM DR RIOS OF SITUATION.
[2017-05-14 15:10] VITALS: BP 101/68
--- NOTE | 2017-05-14 16:19 | NUR ---
Patient is feeling better. Pt was educated on insulin and was educated on current medications used. Pt confirmed understanding.
[2017-05-14] MEDS ORDERED: XARELTO20 MG PO (17:25)
--- NOTE | 2017-05-14 18:01 | NUR ---
Discharge instructions given. Patient verbalizes understanding of same. Discharged in stable condition via Wheelchair to Home with family. All belongings sent with pt. PT AMBULATED OFF UNIT WITH MARIALUISA EUGENE
[2017-05-16] MEDS ORDERED: TRESIBA FL200 UNIT/M (10:11)
== END 2017-05-14 17:52 | disposition home or self-care (01) | DRG 315 ==
LOC: MS2 12:34
PROVIDERS: Nurse Practitioner Family; ADMIT Internal Medicine; ATTEND Internal Medicine
DX: T82.868A Thrombosis due to vascular prosthetic devices, implants and grafts, initial encounter (principal); M86.9 Osteomyelitis, unspecified; E11.40 Type 2 diabetes mellitus with diabetic neuropathy, unspecified; E11.621 Type 2 diabetes mellitus with foot ulcer; E11.69 Type 2 diabetes mellitus with other specified complication; I10 Essential (primary) hypertension; L97.509 Non-pressure chronic ulcer of other part of unspecified foot with unspecified severity; E11.65 Type 2 diabetes mellitus with hyperglycemia; E03.9 Hypothyroidism, unspecified; E78.5 Hyperlipidemia, unspecified; Y83.8 Other surgical procedures as the cause of abnormal reaction of the patient, or of later complication, without mention of misadventure at the time of the procedure; Z79.84 Long term (current) use of oral hypoglycemic drugs
CPT/HCPCS: J1650

== ENCOUNTER 2020-08-02 10:51 | Day surgery (SDC) | payer MEDICARE ==
[~2020-08-02] VITALS: Ht 175.3 cm; Wt 122.5 kg
[~2020-08-02 10:51] MED LIST changes: +BENADRYL25 M1 PO; +BL CHROMIUM200 MCG PO; +CINNAMON500 M1 PO; +CITALOPRAM20 M1 PO; +COQ10100 MG PO; +D3250 MCG PO; +ECHINACEA; +ELDERBERRY; +FISH OIL1000 MG PO; +GABAPENTIN100 MG PO; +HUMULIN N100 UNIT/M; +HUMULIN R500 UNIT/M SC; +HYDROCHLOROTH12.5 M1 PO; +JARDIANCE10 MG PO; +LANTUS100 UNIT SC; +LIPITOR10 M1 PO; +MELATONIN12 MG PO; +METFORMIN500 MG PO; +MINOCYCLINE100 MG PO; +NAPROXEN SODIU220 M2 PO; +OMNICEF300 MG PO; +PROTONIX40 M2 PO; +TRAZODONE50 MG PO; +TRESIBA FL200 UNIT/M; +TRULICITY0.75 MG/0. SC; +VICTOZA18 MG/3 ML SC; +VITAMIN B-1100 M1 PO; +VITAMIN B6100 MG PO; +XARELTO20 MG PO; +ZINC50 M1 PO; +[UNRECOGNIZED DRUG - CODE] PO
[2020-08-02] MEDS ORDERED: PERCOCET 10/31 COMBO PO (14:41)
[2020-08-02 14:56] VITALS: BP 106/55
== END 2020-08-02 15:05 | disposition home or self-care (01) ==
LOC: ORM 10:51
PROVIDERS: ATTEND Podiatrist Foot & Ankle Surgery
PROC: 0QBP0ZZ Excision of Left Metatarsal, Open Approach (ICD-10-PCS; principal; 2020-08-02)
PROC: 0JBR0ZZ Excision of Left Foot Subcutaneous Tissue and Fascia, Open Approach (ICD-10-PCS; 2020-08-02)
DX: E11.69 Type 2 diabetes mellitus with other specified complication (principal); M86.172 Other acute osteomyelitis, left ankle and foot; M86.672 Other chronic osteomyelitis, left ankle and foot; E11.621 Type 2 diabetes mellitus with foot ulcer; L97.429 Non-pressure chronic ulcer of left heel and midfoot with unspecified severity; T87.89 Other complications of amputation stump; Y83.5 Amputation of limb(s) as the cause of abnormal reaction of the patient, or of later complication, without mention of misadventure at the time of the procedure; Z79.4 Long term (current) use of insulin; Z45.2 Encounter for adjustment and management of vascular access device

== ENCOUNTER 2020-09-22 16:26 | Inpatient (IN) | payer MEDICARE ==
[~2020-09-22] VITALS: Ht 175.3 cm; Wt 77.0 kg
[~2020-09-22 16:26] MED LIST changes: +PERCOCET 10/31 COMBO PO
--- NOTE | 2020-09-22 16:30 | NUR ---
TO ROOM FOR TRIAGE
--- NOTE | 2020-09-22 17:30 | NUR ---
RESTING QUIETLY, AWAITING ADMISSION.
--- NOTE | 2020-09-22 18:24 | NUR ---
CALL BANEGAS AVAILABLE. NO DISTRESS.
[2020-09-22] MEDS ORDERED: B-12500 MCG SL (18:32)
[2020-09-22] MEDS ORDERED: FOLIC ACID1 MG PO (18:33)
[2020-09-22] MEDS ORDERED: BIOTIN MAXI10000 MC1 PO (18:33)
[2020-09-22] MEDS ORDERED: VIACTIV PO (18:34)
[2020-09-22] MEDS ORDERED: MULTI VIT PO (18:34)
--- NOTE | 2020-09-22 19:06 | NUR ---
report to adán levi in sbar format
[2020-09-22 19:25] LABS: HEMATOCRIT 40.9 % (37.0-47.0); HEMOGLOBIN 12.6 g/dl (12.0-16.0); IMMATURE GRANULOCYTES 0.2 % (0.0-5.0); MEAN CELL VOLUME 80.5 fL CALC (80.0-100.0); MEAN CORPUSCULAR HGB 24.8 pG CALC (26.0-32.0); MEAN CORPUSCULAR HGB CONC 30.8 g/dL CAL (32.0-36.0); NEUT# 8.26 thou/uL (2.00-7.15); RED BLOOD COUNT 5.08 mill/uL (4.20-5.60); RED CELL DISTRI WIDTH 14.3 % (11.5-15.5)
--- NOTE | 2020-09-22 19:31 | NUR ---
RECIEVED REPORT FROM FRANKLIN THOMPSON, ASSUMED CARE OF PATIENT.
[2020-09-22 19:40] LABS: ALKALINE PHOSPHATASE 103 u/l (38-126); ANION GAP 15 (6-22 (CALC)); BUN 32 mg/dL (7-17); BUN/CREATININE RATIO 33 (12-20 (CALC)); CARBON DIOXIDE 30 mmol/l (22-30); CHLORIDE 99 mmol/l (95-108); GFR > 60 ML/MIN (>=60 (CALC)); GFR FOR AFR.AMER. > 60 ML/MIN (>=60 (CALC)); POTASSIUM 4.6 mmol/l (3.5-5.1); SGOT/AST 27 u/l (14-36); SODIUM 140 mmol/l (137-146); TOTAL PROTEIN 7.3 g/dL (6.3-8.2)
[2020-09-22 19:42] LABS: BILIRUBIN, TOTAL 0.2 mg/dL (0.0-1.4)
--- NOTE | 2020-09-22 20:01 | NUR ---
ATTEMPTED TO CALL REPORT TO MED/SURG, THEY WILL RETURN CALL WHEN ABLE .
--- NOTE | 2020-09-22 20:04 | NUR ---
ATTEMPTED TO CALL FOR REPORT, PER Terrence SIMS RN, CHARGE NURSE. RN IS UNAVAILABLE AT THIS TIME.
--- NOTE | 2020-09-22 20:30 | NUR ---
TELEPHONE REPORT RECEIVED FROM Terrence LARSEN RN IN ED, ROOM 278 PREPARED FOR PT.
--- NOTE | 2020-09-22 20:34 | NUR ---
REPORT CALLED TO RAMYA THOMPSON, PT TO BE TRANSPORTED TO FLOOR. PT IS CURRENTLY IN BR.
--- NOTE | 2020-09-22 20:37 | NUR ---
PT ASSIGNED TO Geoff HOLLY RN, REPORT ENDORSED TO Geoff HOLLY RN.
--- NOTE | 2020-09-22 20:45 | NUR ---
PHYSICAL ASSESMENT COMPLETE. PT C/O PAIN AND DISCOMFORT. SCHEDULED MEDICATIONS AND PRN MEDICATION ADMINISTERED, SEE E-MAR. PT TO BE NPO OF MIDNIGHT. PT DENIES ANY NEEDS AT THIS TIME. PLAN OF CARE REVIEWED, PT DENIES QUESTIONS, VERBALIZES UNDERSTANDING. ITEMS WITHIN REACH, BED LOCKED IN LOW POSITION W/ BEDRAILS UP X2. CALL BANEGAS WITHIN REACH, AGREES TO CALL PRN.
--- NOTE | 2020-09-22 20:46 | NUR ---
Admission Note Report Given to: RAMYA THOMPSON Transported by: X Wheelchair Stretcher Transported with: X Nurse Transporter X Patent IV O2 Lsat Instructor Location: ICU X MS2
--- NOTE | 2020-09-22 20:50 | NUR ---
PT RECEIVED FROM ED TO ROOM 278. ARRIVES VIA WC ACCOMPANIED BY ED RN. PT AMBULATORY TO BED. GAIT STEADY. PT DENIES PAIN AT THIS TIME. ORIENTED TO UNIT, ROOM, CALL BANEGAS, LIGHTS, TV. ICE WATER PROVIDED. CALL BANEGAS WITHIN REACH. AGREES TO CALL PRN.
[2020-09-22 22:37] VITALS: BP 128/75
[2020-09-23] VITALS (12 sets, daily range): BP systolic 83–128; BP diastolic 45–78
--- NOTE | 2020-09-23 | NUR ---
PT LAYING IN BED WITH EYES CLOSED, APPEARS TO BE SLEEPING, APPEARS COMFORTABLE AND IN NO DISTRESS. RESPIRATIONS REGULAR AND UNLABORED. ALL FOOD AND BEVERAGES REMOVED. PT IS NPO OF MIDNIGHT ITEMS REMAIN WITHIN REACH, CALL BANEGAS REMAINS WITHIN REACH. BED REMAINS LOCKED AND IN LOW POSITION WITH BEDRAILS UP X2. WILL CONTINUE TO MONITOR.
--- NOTE | 2020-09-23 04:11 | NUR ---
PT RESTING IN BED, NO SIGNS OF DISTRESS NOTED, RESP EVEN AND UNLABORED. PT IS NPO FOR POSSIBLE I&D LATER IN THE DAY. PT VOICES NO NEEDS OR COMPLAINTS AT THIS TIME. CALL LIGHT IN REACH, CONTINUE TO MONITOR.
[2020-09-23 04:49] LABS: HEMATOCRIT 34.9 % (37.0-47.0); HEMOGLOBIN 10.7 g/dl (12.0-16.0); MEAN CELL VOLUME 81.7 fL CALC (80.0-100.0); MEAN CORPUSCULAR HGB 25.1 pG CALC (26.0-32.0); MEAN CORPUSCULAR HGB CONC 30.7 g/dL CAL (32.0-36.0); RED BLOOD COUNT 4.27 mill/uL (4.20-5.60); RED CELL DISTRI WIDTH 14.4 % (11.5-15.5)
[2020-09-23 05:08] LABS: ANION GAP 10 (6-22 (CALC)); BUN 28 mg/dL (7-17); BUN/CREATININE RATIO 30 (12-20 (CALC)); CARBON DIOXIDE 28 mmol/l (22-30); CHLORIDE 103 mmol/l (95-108); CREATININE 0.9 mg/dL (0.5-1.0); GFR > 60 ML/MIN (>=60 (CALC)); GFR FOR AFR.AMER. > 60 ML/MIN (>=60 (CALC)); MAGNESIUM 1.9 mg/dL (1.6-2.3); SODIUM 137 mmol/l (137-146)
--- NOTE | 2020-09-23 07:03 | NUR ---
REPORT FROM YNES THOMPSON. ASSUMED PT CARE.
--- NOTE | 2020-09-23 07:41 | NUR ---
PT STATES SHE HAS HAD HYSTERECTOMY. NOTIFIED OR STAFF AT THIS TIME.
--- NOTE | 2020-09-23 07:54 | NUR ---
PT TO RADIOLOGY FOR MRI IN STABLE CONDITION.
--- NOTE | 2020-09-23 10:18 | NUR ---
PHYSICIAN AT BEDSIDE TO DISCUSS POC.
--- NOTE | 2020-09-23 10:44 | NUR ---
CONSULT WITH DR. NOVA VIA TELEHEALTH.
--- NOTE | 2020-09-23 13:39 | NUR ---
PT CHANGED INTO GOWN AND VOIDED AWAITING OR STAFF TO TRANSPORT TO OR FOR PROCEDURE.
--- NOTE | 2020-09-23 14:04 | NUR ---
PT LEFT FLOOR IN STABLE CONDITION TO OR ACCOMPAINED BY OR STAFF.
--- NOTE | 2020-09-23 18:00 | NUR ---
PT ARRIVED BACK TO FLOOR VIA STRETCHER ACCOMPAINED BY OR STAFF. PT ALERT AND ORIENTED. DENIES ANY PAIN OR DISCOMFORT. DRESSING TO LLE, CDI. ELEVATED LLE ON TWO PILLOWS ORDERED. DISCUSSED POC AND STRICT NWB. PT VERBALIZED UNDERSTANDING. PT REQUESTING TO EAT. CRACKERS AND JUICE PROVIDED, INSTRUCTED IF TOLERATED PT COULD EAT DINNER BROUGHT FROM HOME BY FAMILY. CALL LIGHT WITHIN REACH. PT MOTHER AT BEDSIDE.
--- NOTE | 2020-09-23 20:30 | NUR ---
PATIENT IS SEMI FOWLERS POSITION. ALERT AND ORIENTED X3. ABLE TO MAKE NEEDS KNOWN. RESPIRATIONS EASY ON RA. HR REGULAR. ABD HYPOACTIVE X4. LEFT FOOT WRAPPED FROM O.R. ELEVATED WITH 2 PILLOWS. CURRENTLY CDI. C/O PAIN ADDRESSED WITH PRN MEDICATION. VAD TO RAC KINKED. REMOVED WITH CATHETER INTACT. CURRENTLY WITHOUT ATTHIS TIME. ASSESSMENT COMPLETE AND CHARTED. BED IN LOW POSITION. CALL LIGHT WITHIN REACH. PATIENT IS NON WEIGHTBEARING TO LLE.
--- NOTE | 2020-09-24 02:26 | NUR ---
CURRENTLY RESTING QUIETLY. NO ACUTE DISTRESS NOTED. RESPIRATIONS EVEN AND NONLABORED. BED IN POSITION. CALL LIGHT WITHINREACH. LLE ELEVATED ON 2 PILLOWS. DRAINAGE NOTED. GREEN CHUCKS UNDER FOOT AT THIS TIME.
[2020-09-24 03:51] VITALS: BP 113/63
--- NOTE | 2020-09-24 04:24 | NUR ---
RESTING QUIETLY. LLE ELEVATED ON 2 PILLOWS.
--- NOTE | 2020-09-24 07:00 | NUR ---
PT REPORT RECEIVED FROM NIGHT NURSEDAX
--- NOTE | 2020-09-24 08:00 | NUR ---
PT WAS FOUND RESTING IN BED IN SEMI-HUBER'S POSITION;PT IS A&OX3;VS AND ASSESSMENT WERE COMPLETED;HEART SOUNDS ARE REGULAR IN RATE AND RHYTHM;LUNG SOUNDS ARE CLEAR;RESPIRATIONS ARE EVEN AND UNLABORED ON RA;ABDOMEN IS SOFT WITH HYPOACTIVE BOWEL SOUNDS PRESENT IN ALL QUADRANTS;#20G IV IN LW IS SL, PATENT AND APPEARS FREE OF COMPLICATIONS AT THIS TIME;PT HAS A POST OP SURGICAL WOUND PRESENT ON LT LEG; WILL BE IN LATER TODAY TO PERFORM DRESSING CHANGE ON WOUND;PT LEG IS CURRENTLY ELEVATED ON 2 PILLOWS WITH A CHUX PAD UNDERNEATH FOR ANY DRAINAGE;DRESSING IN PLACE IS CDI AT THIS TIME;SAFETY PRECAUTIONS IN PLACE;CALL LIGHT WITHIN REACH;PT ENCOURAGED TO CALL WITH ANY NEEDS OR CONCERNS;WILL CONTINUE TO MONITOR.
[2020-09-24 08:30] VITALS: BP 142/75
--- NOTE | 2020-09-24 12:00 | NUR ---
PT WAS FOUND SITTING IN BED EATING LUNCH;PT HAS NO COMPLAINTS AT THIS TIME;SAFETY PRECAUTIONS IN PLACE;CALL LIGHT WITHIN REACH;WILL CONTINUE TO MONITOR.
--- NOTE | 2020-09-24 12:00 | NUR ---
PT IS CURRENTLY RESTING IN BED EATING LUNCH;PT LEG IS ELEVATED ON PILLOWS AND PERFORMED A DRESSING CHANGE ON WOUND;SAFETY PRECAUTIONS IN PLACE;CALL LIGHT WITHIN REACH;WILL CONTINUE TO MONITOR.
[2020-09-24 16:00] VITALS: BP 119/68
--- NOTE | 2020-09-24 16:00 | NUR ---
PT IS RESTING IN BED;#20G IV IN LW IS RUNNING IV ABX WITH NO COMPLICATIONS AT THIS TIME;SAFETY PRECAUTIONS IN PLACE;CALL LIGHT WITHIN REACH;WILL CONTINUE TO MONITOR
[2020-09-24 19:00] VITALS: BP 116/67
--- NOTE | 2020-09-24 20:20 | NUR ---
PATIENT RESTING IN BED AT THIS TIME-AWAKE ALERT AND ORIENTEDX3. PATIENT WITH DRESSING TO LEFT FOOT-CDI AND LEFT FOOT ELEVATED ON 2 PILLOWS. SALINE LOCK TO LEFT WRIST INTACT-MEDICATED FOR LEFT FOOT PAIN WITH MORPHINE 4MG IVP ORDERED FOR PAIN. PAIN WAS 8.10 ON PAIN SCALE. REINFORCED WITH PATIENT NBW STATUS AND VERBALIZES UNDERSTANDING. STATES THAT SHE IS PROBABLY GOING BACK TO SURGERY ON SATURDAY WITH DR. GUO. SAFETY PRECAUTIONS REINFORCED. CALL LIGHT IN REACH. WILL CONT TO MONITOR.
--- NOTE | 2020-09-24 22:00 | NUR ---
PATIENT RESTING IN CRC-[id number] WAS 270 TONIGHT. PATIENT MEDICATED WITH LEVEMIR 75UNITS SQ ORDERED AND COVERED WITH HUMALOG PER SS COVERAGE PROTOCOL. PROVIDED WITH HS SNACK. [id number] WITH ROXICODONE 10MG PO FOR BREAKTHRU PAIN. FLAGYL HUNG ORDERED. LEFT FOOT REMAINS ELEVATED ON PILLOWS. CALL LIGHT IN REACH. WILL CONT TO MONITOR.
--- NOTE | 2020-09-25 | NUR ---
PATIENT RESTING IN BED AT THIS TIME WITH LEFT FOOT ELEVATED ON PILLOWS. EYES ARE CLOSED AND RESPS ARE EVEN AND UNLABORED. CALL LIGHT IN REACH. WILL CONT TO MONITOR.
[2020-09-25 04:00] VITALS: BP 124/80
--- NOTE | 2020-09-25 04:11 | NUR ---
PATIENT RESTING IN BED WITH EYES CLOSED. RESPS ARE EVEN AND UNLABORED. LEFT FOOT ELEVATED ON 2PILLOWS. DRESSING REMAINS CDI. CALL LIGHT IN REACH. WILL CONT TO MONITOR.
[2020-09-25 05:40] LABS: ALBUMIN 3.2 g/dL (3.2-5.0); ALKALINE PHOSPHATASE 88 u/l (38-126); ANION GAP 11 (6-22 (CALC)); BUN 21 mg/dL (7-17); BUN/CREATININE RATIO 30 (12-20 (CALC)); CARBON DIOXIDE 27 mmol/l (22-30); CHLORIDE 103 mmol/l (95-108); CREATININE 0.7 mg/dL (0.5-1.0); GFR > 60 ML/MIN (>=60 (CALC)); GFR FOR AFR.AMER. > 60 ML/MIN (>=60 (CALC)); POTASSIUM 4.3 mmol/l (3.5-5.1); SGOT/AST 23 u/l (14-36); SODIUM 137 mmol/l (137-146); TOTAL PROTEIN 5.9 g/dL (6.3-8.2)
[2020-09-25 05:42] LABS: HEMATOCRIT 33.5 % (37.0-47.0); HEMOGLOBIN 10.4 g/dl (12.0-16.0); IMMATURE GRANULOCYTES 0.3 % (0.0-5.0); MEAN CELL VOLUME 82.1 fL CALC (80.0-100.0); MEAN CORPUSCULAR HGB 25.5 pG CALC (26.0-32.0); NEUT# 5.26 thou/uL (2.00-7.15); RED BLOOD COUNT 4.08 mill/uL (4.20-5.60); RED CELL DISTRI WIDTH 14.3 % (11.5-15.5)
--- NOTE | 2020-09-25 07:00 | NUR ---
PT REPORT RECEIVED FROM NIGHT NURSESIDNEY
--- NOTE | 2020-09-25 08:00 | NUR ---
PT WAS FOUND RESTING IN BED IN SEMI-HUBER'S POSITION;PT IS A&OX3;PT HAS NO COMPLAINTS OF PAIN AT THIS TIME;VS AND ASSESSMENT WERE COMPLETED;HEART SOUNDS ARE REGULAR IN RATE AND RHYTHM;LUNG SOUNDS ARE CLEAR;RESPIRAIIONS ARE EVEN AND UNLABORED ON RA;ABDOMEN IS SOFT AND NON-TENDER;BOWEL SOUNDS ARE HYPOACTIVE IN ALL QUADRANTS;PT HAS A POST OP WOUND TO LEFT FOOT;DRESSING IS CDI AND FOOT IS CURRENTLY ELEVATED ON 2 PILLOWS;#20G IV IN LW IS SL, PATENT AND APPEARS FREE OF COMPLICATIONS AT THIS TIME;SAFETY PRECAUTIONS IN PLACE;CALL LIGHT WITHIN REACH;PT ENCOURAGED TO CALL WITH ANY NEEDS OR CONCERNS;WILL CONTINUE TO MONITOR.
[2020-09-25 09:45] VITALS: BP 119/60
--- NOTE | 2020-09-25 10:00 | NUR ---
AND SHARDA SINGH AT BEDSIDE DISCUSSING POC WITH PT
--- NOTE | 2020-09-25 12:00 | NUR ---
PT IS CURRENTLY RESTING IN BED EATING LUNCH;PT HAS NO NEEDS AT THIS TIME;SAFETY PRECAUTIONS IN PLACE;CALL LIGHT WITHIN REACH;WILL CONTINUE TO MONITOR.
[2020-09-25 15:54] VITALS: BP 123/72
--- NOTE | 2020-09-25 16:00 | NUR ---
PT IS SITTING UP ON EDGE OF BED AFTER RETURNING FROM BSC;PT IS STILL ZERO WT BEARING TO LT FOOT AND IS COMPLIANT WITH AMBULATING;#20G IV IN LW IS SL, PATENT AND APPEARS FREE OF COMPLICATIONS AT THIS TIME.
--- NOTE | 2020-09-25 19:59 | NUR ---
PATIENT RESTING IN BED AT THIS TIME-AWAKE ALERT AND ORIENTEDX3. LEFT FOOT DRESSING IS CDI AND SECURED WITH MARTHA WRAP. CMS TO LEFT TOES IS WNL-LEFT FOOT ELEVATED ON 2 PILLOWS. PATIENT STATES THAT SHE DID HAVE BM TODAY AND HAVING NO DIFFICULTY WITH URINATION. ENCOURAGED HIGH FIBER DIET AND PLENTY OF PO FLUIDS TO PREVEBT CONSTIPATION. SALINE LOCK TO LEFT WRIST INTACT. NWB STATUS REINFORCED. PATIENT VERBALIZED UNDERSTANDING OF THE STATED. SAFETY PRECAUTIONS REINFORCED. CALL LIGHT IN REACH. WILL CONT TO MONITOR.
--- NOTE | 2020-09-25 20:00 | NUR ---
PATIENT RESTING IN BED AT THIS TIME WITH LLE ELEVATED ON PILLOWS. DRESSING TO LEFT FOOT IS INTACT AND SECURED WITH MARTHA WRAP. PATIENT IS AWAKE ALERT AND ORIENTEDX3. PATIENT IS FOR FURTHER SURGERY ON LEFT FOOT TOMORROW WITH DR. GUO. PATIENT STATES THAT SHE DID HAVE BM TODAY. ENCOURAGED HIGH FIOBER DIET AND PLENTY OF PO FLUIDS TO AVOID CONSTIPATION-USE STOOL SOFTNERS PRN. REINFORCED NWB STATUS TO LLE ORDERED. VOIDING ON BSC-DENIES ANY DIFFICULTY. LUNGS ARE CLEAR. ABD IS SOFT WITH ACTIVE BS. SALINE LOCK TO LEFT WRIST INTACT. SAFETY PRECAUTIONS REINFORCED. CALL LIGHT IN REACH. WILL CONT TO MONITOR.
[2020-09-25 21:18] VITALS: BP 109/70
--- NOTE | 2020-09-25 22:00 | NUR ---
PATIENT RESTING IN BED AT THIS TIME. ACCU-CHECK WAS 222-COVERED WITH 4UNITS OF HUMALOG PER SS COVERAGE SCALE. LEVEMIR 75UNITS SQ GIVEN SCHEDULED HS SNACK PROVIDED. HS MEDS GIVEN-ROXICODONE 10MG PO GIVEN FOR PAIN-7/10 ON PAIN SCALE. LLE REMAINS ELEVATED ON PILLOWS. DRESSING REMAINS CDI AND SECURED WITH MARTHA WRAP. CALL LIGHT IN REACH. WILL CONT TO MONITOR.
[2020-09-26] VITALS (10 sets, daily range): BP systolic 107–145; BP diastolic 66–85
[2020-09-26 06:01] LABS: HEMATOCRIT 33.8 % (37.0-47.0); HEMOGLOBIN 10.4 g/dl (12.0-16.0); IMMATURE GRANULOCYTES 0.6 % (0.0-5.0); MEAN CELL VOLUME 81.6 fL CALC (80.0-100.0); MEAN CORPUSCULAR HGB 25.1 pG CALC (26.0-32.0); MEAN CORPUSCULAR HGB CONC 30.8 g/dL CAL (32.0-36.0); NEUT# 4.8 thou/uL (2.00-7.15); RED BLOOD COUNT 4.14 mill/uL (4.20-5.60); RED CELL DISTRI WIDTH 14.2 % (11.5-15.5)
[2020-09-26 06:21] LABS: ANION GAP 10 (6-22 (CALC)); BUN 20 mg/dL (7-17); BUN/CREATININE RATIO 28 (12-20 (CALC)); CARBON DIOXIDE 28 mmol/l (22-30); CHLORIDE 103 mmol/l (95-108); CREATININE 0.7 mg/dL (0.5-1.0); GFR > 60 ML/MIN (>=60 (CALC)); GFR FOR AFR.AMER. > 60 ML/MIN (>=60 (CALC)); POTASSIUM 4.1 mmol/l (3.5-5.1); SODIUM 137 mmol/l (137-146)
--- NOTE | 2020-09-26 09:00 | NUR ---
PT RESTING IN SEMI FOWLERS POSITION,A&O X3;VS OBTAINED AND ASSESSMENT COMPLETED;PT REPORTS LLE PAIN RATING 7/10 ON THE PAIN SCALE AND REQUESTS PAIN MEDICATION,PT TO BE MEDICATED WITH PRN ROXICODONE 10MG PO;RESPIRATIONS EVEN AND UNLABORED ON RA,CLEAR LUNG SOUNDS;ABDOMEN SOFT ON PALPATION AND ACTIVE IN ALL 4 QUADRANTS;WEAK PEDAL PULSES,DRESSING CDI TO LEFT FOOT;#20G TO LW FLUSHED AND PATENT,SITE APPEARS HEALTHY;ACCUCHECK 185, PT COVERED WITH SLIDING SCALE INSULIN PER ORDER;PER PT TO BE NPO AFTER 10AM, PT VERBALIZES UNDERSTANDING;PT DENIES ANY ADDITIONAL NEEDS AND IS ENCOURAGED TO CALL FOR ASSISTANCE IF NEEDED;FALL PRECAUTIONNS IN PLACE WITH BED IN LOWEST POSITION AN CALL LIGHT IN REACH;WILL CONTINUE TO MONITOR
--- NOTE | 2020-09-26 09:52 | NUR ---
PT TO BE SOFTWARE DESIGNER BY OR STAFF AT APPROX 1700 PER UNIQUE,OR [facility]
--- NOTE | 2020-09-26 11:40 | NUR ---
PT RESTING IN SEMI FOWLERS POSITION;RESPIRATIONS EVEN AND UNLABORED ON RA;PT REPORTS LLE PAIN AND REQUESTS PRN MORPHINE IVP FOR PAIN WELL PRN BENADRYL FOR ITCHING, ORDER CHANGED TO IV PER SUSAN BRANNON.AWAITING ORDER VERIFICATION BY PHARMACY FOR ADMINISTRATION, PT VERBALIZES UNDERSTANDING;PT DENIES ANY ADDITIONAL NEEDS; NPO DIET STATUS REINFORCED;PT ENCOURAGED TO CALL FOR ASSISTANCE IF NEEDED;CALL LIGHT IN REACH;WILL CONTINUE TO MONITOR
--- NOTE | 2020-09-26 12:00 | NUR ---
AT BEDSIDE DISCUSSING POC.
--- NOTE | 2020-09-26 12:10 | NUR ---
PT MEDICATED WITH PRN MORPHINE 4MG SLOW IVP FOR LLE PAIN RATING 7/10 ON THE PAIN SCALE, PT ALSO MEDICATED WITH PRN BENEDRYL 25MG IVP FOR ITCHING PER REQUEST;WILL CONTINUE TO MONITOR FOR EFECTIVENESS
--- NOTE | 2020-09-26 16:00 | NUR ---
PT RESTING IN SEMI FOWLERS POSITION;RESPIRATIONS EVEN AND UNLABORED ON RA;PT DENIES ANY CURRENT NEEDS;IV SITE PATENT;DRESSING TO LEFT FOOT CDI;PT ENCOURAGED TO CALL FOR ASSISTANCE IF NEEDED;CALL LIGHT IN REACH;WILL CONTINUE TO MONITOR
--- NOTE | 2020-09-26 17:00 | NUR ---
PT TRANSPORTED TO OR IN STABLE CONDITION VIA STRETCHER ACCOMPANIED BY DONNA BELLAMY.
--- NOTE | 2020-09-26 20:45 | NUR ---
PATIENT RETURNED TO ROOM FROM PACU VIA STRETCHER WITH PACU STAFF IN ATTENDANCE. PATIENT IS ABLE TO TRANSFER SELF FROM STRETCHER TO BED USING KNEE ROLLING DEVICE-NWB STATUS MAINTAINED. PATIENT IS AWAKE ALERT AND ORIENTEDX3. PATIENT PROVIDED WITH PO FLUIDS REQUESTED. PATIENT DENIES ANY NAUSEA AT THIS TIME. PATIENT WITH DRESSING TO LLE/FOOT INTACT AND SECURED WITH MARTHA WRAP WITH SPLINT IN PLACE. LUNGS ARE CLEAR. ABD IS SOFT WITH BS+. IV SITE TO RIGHT HAND INTACT WITH IVF PATENT AND INFUSING WITHOUT ANY DIFFICULTY. VS TAKEN AND ARE STABLE. O2 SATS ARE 93% ON RA. SAFETY PRECAUTIONS REINFORCED. CALL LIGHT IN REACH. WILL CONT TO MONITOR.
--- NOTE | 2020-09-26 21:49 | NUR ---
PATIENT SITTING UP IN BED EATING DINNER. ACCU-CHECK WAS 169. PATIENT REFUSED HUMALOG COVERAGE. MEDICATED WITH LEVEMIR 75UNITS SCHEDULED. MORPHINE 4MG IVP GIVEN FOR 8/10 LEFT FOOT PAIN. OTHER HS MEDS WERE ALSO GIVEN. IV SITE TO RIGHT HAND REDRESSED. SITE REMAINS HEALTHY AT THIS TIME. CALL LIGHT IN REACH. WILL CONT TO MONITOR.
--- NOTE | 2020-09-26 23:51 | NUR ---
PATIENT RESTING IN BED AT THIS TIME-C/O POST-OP LEFT FOOT-9/10 ON PAIN SCALE. PATIENT STATES THAT SHE IS HAVING SEVERE THROBBING. MEDICATED WITH ROXICODONE 10MG PO AND TYLENOL 650MG PO SCHEDULED. ENCOURAGED PATIENT TO CONT TO KEEP LEFT FOOT ELEVATED ON PILLOWS. APPETITE WAS GOOD FOR DINNER. SAFETY PRECAUTIONS REINFORCED.CALL LIGHT IN REACH. WILL CONT TO MONITOR.
--- NOTE | 2020-09-27 01:26 | NUR ---
PATIENT RESTING IN BED AT THIS TIME-MINIMAL TO NO RELIEF FROM ROXICODONE EARLIER PER PATIENT. CONT TO C/O SEVERE THROBBING PAIN TO LEFT FOOT. ALSO C/O ITCHING. MEDICATED WITH MORPHINE 4MG IVP FOR 9/10 ON PAIN SCALE AND WITH BENEDRYL 25MG IVP FOR ITCHING. ENCOURAGED ELEVATION OF LLE ON PILLOWS. CALL LIGHT IN REACH. WILL CONT TO MONITOR.
--- NOTE | 2020-09-27 03:00 | NUR ---
PATIENT RESTING IN BED WITH HOB SLIGHTLY ELEVATED AND LLE ELEVATED ON 2 PILLOWS. DRESSING AND SPLINT IN PLACE. IVF PATENT AND INFUSING VIA RIGHT HAND SITE. CALL LIGHT IN REACH. WILL CONT TO MONITOR.
[2020-09-27 05:16] VITALS: BP 155/81
[2020-09-27 05:23] LABS: MEAN CORPUSCULAR HGB 25.5 pG CALC (26.0-32.0); MEAN CORPUSCULAR HGB CONC 31.4 g/dL CAL (32.0-36.0); RED BLOOD COUNT 4.32 mill/uL (4.20-5.60); RED CELL DISTRI WIDTH 14.2 % (11.5-15.5)
[2020-09-27 05:42] LABS: ALBUMIN 3.4 g/dL (3.2-5.0); ALKALINE PHOSPHATASE 121 u/l (38-126); ANION GAP 15 (6-22 (CALC)); BILIRUBIN, TOTAL 0.1 mg/dL (0.0-1.4); BUN 23 mg/dL (7-17); BUN/CREATININE RATIO 27 (12-20 (CALC)); CARBON DIOXIDE 22 mmol/l (22-30); CHLORIDE 103 mmol/l (95-108); CREATININE 0.8 mg/dL (0.5-1.0); GFR > 60 ML/MIN (>=60 (CALC)); GFR FOR AFR.AMER. > 60 ML/MIN (>=60 (CALC)); POTASSIUM 5.8 mmol/l (3.5-5.1); SGOT/AST 38 u/l (14-36); SODIUM 134 mmol/l (137-146); TOTAL PROTEIN 6.3 g/dL (6.3-8.2)
--- NOTE | 2020-09-27 06:55 | NUR ---
REPORT RECEIVED FROM DONNA LITTLE
[2020-09-27 08:17] VITALS: BP 166/66
--- NOTE | 2020-09-27 08:20 | NUR ---
PT RESTING IN SEMI FOWLERS POSITION,A&O X3;VS OBTAINED AND ASSESSMENT COMPLETED;PT REPORTS LLE PAIN RATING 7/10 ON THE PAIN SCALE AND REQUESTS PAIN MEDICATION, PT MEDICATED WITH PRN ROXICODONE 10MG PO;PT POST OF DAY #1 DEBRIDMENT OF LEFT FOOT;RESPIRATIONS EVEN AND UNLABORED ON RA,CLEAR LUNG SOUNDS;ABDOMEN SOFT ON PALPATION AND ACTIVE IN ALL 4 QUADRANTS;WEAK PEDAL PULSES, LLE DRESSING CDI AND ELEVATED ON PILLOWS;#22G TO RH LEAKING AND REMOVED WITH CATHETER INTACT;ACCUCHECK 336,PT COVERED WITH SLIDING SCALE INSULIN PER ORDER;PT DENIES ANY ADDITIONAL NEEDS AND IS ENCOURAGED TO CALL FOR ASSISTANCE IF NEEDED;FALL PRECAUTIONS IN PLACE WITH BED IN THE LOWEST POSITION AND CALL LIGHT IN REACH;WILL CONTINUE TO MONITOR
[2020-09-27 10:05] VITALS: BP 161/82
--- NOTE | 2020-09-27 10:48 | NUR ---
AT BEDSIDE DISCUSSING POC.
--- NOTE | 2020-09-27 11:06 | NUR ---
PT TRANSPORTED TO RADIOLOGY IN STABLE CONDITION VIA WHEELCHAIR ACCOMPANIED BY NATHALIA DUMONT.
--- NOTE | 2020-09-27 11:40 | NUR ---
PT TRANSPORTED TO MED/SURG ROOM 278 IN STABLE CONDITION VIA WHEELCHAIR.
--- NOTE | 2020-09-27 12:05 | NUR ---
PT RESTING IN RECLINER;RESPIRATIONS EVEN AND UNLABORED ON RA;PT DENIES ANY CURRENT PAIN OR DISCOMFORTS;CALDERON SL PICCLINE PATENT AND MEASURING AT 36CM;DRESSING TO LLE REMAINS CDI;ACCUCHECK 237, PT TO BE MEDICATED WITH INSULIN ORDERED;ALL SAFETY PRECAUTIONS REMAIN IN PLACE WITH BED IN THE LOWEST POSITION AND CALL LIGHT IN REACH;WILL CONTINUE TO MONTIOR
--- NOTE | 2020-09-27 12:40 | NUR ---
PT MEDICATED WITH PRN ROXICODONE 10MG PO FOR LLE PAIN RATING 6/10 ON THE PAIN SCALE, WILL CONTINUE TO MONITOR FOR EFFECTIVENESS
[2020-09-27 15:00] VITALS: BP 106/40
--- NOTE | 2020-09-27 15:25 | NUR ---
PT RESTING IN SEMI FOWLERS POSITION;RESPIRATIONS EVEN AND UNLABORED ON RA;PT REPORTS ITCHING AND REQUESTS PRN BENADRYL 25MG IVP AT THIS TIME,PT MEDICATED PER ORDER;CALDERON PICCLINE REMAINS PATENT;DRESSING TO LLE REMAINS CDI;PT DENIES ANY ADDITIONAL NEEDS;ENCOURAGED TO CALL FOR ASSISTANCE IF NEEDED;FALL PRECAUTIONS IN PLACE WITH BED IN THE LOWEST POSITION AND CALL LIGHT IN REACH;WILL CONTINUE TO MONITOR
[2020-09-27] MEDS ORDERED: CEFEPIME2 GM IV (15:40)
--- NOTE | 2020-09-27 18:05 | NUR ---
PT REPORTS LLE PAIN RATING 7/10 ON THE PAIN SCALE AND REQUESTS PAIN MEDICATION, PT MEDICATED WITH PRN ROXICODONE 10MG PO AT THIS TIME;PT DENIES ANY ADDITIONAL NEEDS AND IS ENCOURAGED TO CALL FOR ASSISTANCE IF NEEDED;CALL LIGHT IN REACH;WILL CONTINUE TO MONITOR
[2020-09-27 19:00] VITALS: BP 134/70
--- NOTE | 2020-09-27 19:00 | NUR ---
REPORT RECEIVED FROM Milo SMILEY.
--- NOTE | 2020-09-27 21:02 | NUR ---
PATIENT IN RESTROOM FINISHING WASHING UP. ASSESMENT COMPLETED AT THIS TIME. NORMAL HEART SOUNDS, LUNGS CLEAR BILATERALLY, ACTIVE BOWEL SOUNDS. DRESSING INTACT ON LEFT LOWER FOOT. CAREPLAN REVIEWED WITH PATIENT, PATIENT EXPECTED TO DC TOMORROW. PATIENT MEDICATED A THIS TIME, SEE EMAR. PATIENT INSTRUCTED TO CALL IF ASSITANCE IS NEEDED. CALL LIGHT AND BEDSIDE TABLE WITHIN REACH.
--- NOTE | 2020-09-28 00:05 | NUR ---
PATIENT SLEEPING, IV ANTIBIOTICS HUNG AT THIS TIME, TYLENOL GIVEN PER EMAR. SEE EMAR
--- NOTE | 2020-09-28 04:09 | NUR ---
PATIENT SLEEPING, IV ANTIBIOTICS HUNG AT THIS TIME. MEDICATIONS ADMINITERED, SEE EMAR.
--- NOTE | 2020-09-28 04:30 | NUR ---
LAB DRAWN VIA PICC BY Bushra SINGH RN. PATIENT REQUESTING PAIN MEDICATION. MEDICATED PER EMAR. SEE EMAR.
[2020-09-28 05:57] LABS: HEMATOCRIT 31.6 % (37.0-47.0); HEMOGLOBIN 9.7 g/dl (12.0-16.0); MEAN CELL VOLUME 82.5 fL CALC (80.0-100.0); MEAN CORPUSCULAR HGB 25.3 pG CALC (26.0-32.0); MEAN CORPUSCULAR HGB CONC 30.7 g/dL CAL (32.0-36.0); RED BLOOD COUNT 3.83 mill/uL (4.20-5.60); RED CELL DISTRI WIDTH 14.4 % (11.5-15.5)
[2020-09-28 06:17] LABS: ANION GAP 11 (6-22 (CALC)); BUN 23 mg/dL (7-17); BUN/CREATININE RATIO 31 (12-20 (CALC)); CHLORIDE 103 mmol/l (95-108); CREATININE 0.7 mg/dL (0.5-1.0); GFR > 60 ML/MIN (>=60 (CALC)); GFR FOR AFR.AMER. > 60 ML/MIN (>=60 (CALC)); POTASSIUM 4.5 mmol/l (3.5-5.1); SODIUM 137 mmol/l (137-146)
[2020-09-28 06:22] LABS: CARBON DIOXIDE 28 mmol/l (22-30)
--- NOTE | 2020-09-28 08:00 | NUR ---
PT SLEEP UPON ENTERING ROOM. PT IS ALERT AND ORIENTED. PTS VITALS AND ASSESSMENT DONE. S1 AND S2 HEARD. LUNGS CLEAR. BOWEL SIGNS ACTIVE IN ALL 4 QUADRANTS. PEDAL PULSES EQUALLY STRONG BILATERALLY. FOOT BANDAGE INTACT. PIC INTACT AND HEALTHY. NO DISTRESS NOTED. CALL LIGHT WITHIN REACH.
[2020-09-28 08:55] VITALS: BP 123/68
[2020-09-28 09:08] VITALS: BP 134/70
--- NOTE | 2020-09-28 10:40 | NUR ---
PT SLEEP UPON ENTERING ROOM. PT ALERT AND ORIENTED. S1 AND S2 HEARD. LUNGS SOUND CLEAR. BOWEL SOUNDS ACTIVE IN ALL 4 QUADRANTS. PEDAL PULSES EQUALLY STRONG BILATERALLY. PIC INTACT. NO DISTRESS NOTED. FOOT BANDAGE INTACT. CALL LIGHT WITHIN REACH.
--- NOTE | 2020-09-28 12:00 | NUR ---
PT IN CHAIR. NO DISTRESS NOTED. CALL LIGHT WITHIN REACH.
[2020-09-28] MEDS ORDERED: PERCOCET1 TA2 PO (13:09)
--- NOTE | 2020-09-28 13:27 | NUR ---
Discharge instructions given. Patient verbalizes understanding of same. Discharged in stable condition via PT SCOOTER to Home with staff. All belongings sent with pt.
--- NOTE | 2020-10-11 10:52 | NUR ---
PER PATIENT IN 07/22/20 WAS GOING TO HAVE FOOT SURGERY AND PLACED COLONOSCOPY ON HOLD UNTIL HEALED. I CALLED PATIENT TODAY TO CHECK STATUS OF HEALING, SHE STATED SHE HAD A SECOND SURGERY DUE TO CONTINUED "BONE INFECTION" TWO WEEKS AGO AND IS NOT HEALED YET. ADVISED PATIENT SINCE LAST CONSULT LONGER THAN 6 MONTHS WILL NEED NEW CONSULT FOR PROCEDURE. PATIENT AGREED AND STATED WILL CALL US WHEN READY TO RESCHEDULE CONSULT AND PROCEDURE.
[2020-11-22] MEDS ORDERED: TRAMADOL HCL50 MG PO ×2 (15:46→15:48)
[2020-11-22] MEDS ORDERED: NEURONTIN400 MG PO (15:50)
== END 2020-09-28 13:27 | disposition home or self-care (01) | DRG 623 ==
LOC: ED 16:26 → ED-I 18:50 → ED 19:26 → MS2 19:27
PROVIDERS: Emergency Medicine; Internal Medicine; Nurse Practitioner; Nurse Practitioner Family; Physician Assistant; ADMIT Internal Medicine; ATTEND Internal Medicine
PROC: 0QTP0ZZ Resection of Left Metatarsal, Open Approach (ICD-10-PCS; principal; 2020-09-23)
PROC: 0LBW0ZZ Excision of Left Foot Tendon, Open Approach (ICD-10-PCS; 2020-09-23)
PROC: 0QBM0ZZ Excision of Left Tarsal, Open Approach (ICD-10-PCS; 2020-09-23)
PROC: 0QBP0ZZ Excision of Left Metatarsal, Open Approach (ICD-10-PCS; 2020-09-23)
PROC: 0JBR0ZZ Excision of Left Foot Subcutaneous Tissue and Fascia, Open Approach (ICD-10-PCS; 2020-09-26)
PROC: 0LXW0ZZ Transfer Left Foot Tendon, Open Approach (ICD-10-PCS; 2020-09-26)
PROC: 0HXNXZZ Transfer Left Foot Skin, External Approach (ICD-10-PCS; 2020-09-26)
PROC: 02HV33Z Insertion of Infusion Device into Superior Vena Cava, Percutaneous Approach (ICD-10-PCS; 2020-09-27)
PROC: B518ZZA Fluoroscopy of Superior Vena Cava, Guidance (ICD-10-PCS; 2020-09-27)
DX: E11.69 Type 2 diabetes mellitus with other specified complication (principal); M86.672 Other chronic osteomyelitis, left ankle and foot; L03.116 Cellulitis of left lower limb; L02.612 Cutaneous abscess of left foot; E11.621 Type 2 diabetes mellitus with foot ulcer; L97.529 Non-pressure chronic ulcer of other part of left foot with unspecified severity; E11.42 Type 2 diabetes mellitus with diabetic polyneuropathy; E11.628 Type 2 diabetes mellitus with other skin complications; I10 Essential (primary) hypertension; F32.9 Major depressive disorder, single episode, unspecified; E78.5 Hyperlipidemia, unspecified; E03.9 Hypothyroidism, unspecified; K59.00 Constipation, unspecified; B95.2 Enterococcus as the cause of diseases classified elsewhere; Z88.1 Allergy status to other antibiotic agents; Z89.422 Acquired absence of other left toe(s); Z79.4 Long term (current) use of insulin; Z91.19 Patient's noncompliance with other medical treatment and regimen; Z79.899 Other long term (current) drug therapy; Z20.822 Contact with and (suspected) exposure to COVID-19
CPT/HCPCS: G0378; J0131; J0692; J0878; J1100; J1650

== ENCOUNTER 2021-02-19 11:07 | Emergency (ER) | payer MEDICARE ==
[~2021-02-19] VITALS: Ht 175.3 cm; Wt 125.0 kg
[~2021-02-19 11:07] MED LIST changes: +B-12500 MCG SL; +BIOTIN MAXI10000 MC1 PO; +CEFEPIME2 GM IV; +FOLIC ACID1 MG PO; +MULTI VIT PO; +NEURONTIN400 MG PO; +PERCOCET1 TA2 PO; +TRAMADOL HCL50 MG PO; +VIACTIV PO
[2021-02-19] MEDS ORDERED: CEFEPIME2 G2 IV (12:10)
[2021-02-19 12:54] VITALS: BP 129/60
== END 2021-02-19 12:54 | disposition home or self-care (01) ==
LOC: ED 11:07
DX: T82.594A Other mechanical complication of infusion catheter, initial encounter (principal); I10 Essential (primary) hypertension; E11.40 Type 2 diabetes mellitus with diabetic neuropathy, unspecified; Y84.8 Other medical procedures as the cause of abnormal reaction of the patient, or of later complication, without mention of misadventure at the time of the procedure; Z79.4 Long term (current) use of insulin
CPT/HCPCS: J2997

== ENCOUNTER 2021-03-05 14:24 | Emergency (ER) | payer MEDICARE ==
[~2021-03-05] VITALS: Ht 175.3 cm; Wt 125.0 kg
[~2021-03-05 14:24] MED LIST changes: +CEFEPIME2 G2 IV
[2021-03-05 16:37] LABS: HEMATOCRIT 35.5 % (37.0-47.0); HEMOGLOBIN 10.8 g/dl (12.0-16.0); IMMATURE GRANULOCYTES 0.6 % (0.0-5.0); MEAN CELL VOLUME 80.9 fL CALC (80.0-100.0); MEAN CORPUSCULAR HGB 24.6 pG CALC (26.0-32.0); MEAN CORPUSCULAR HGB CONC 30.4 g/dL CAL (32.0-36.0); NEUT# 13.43 thou/uL (2.00-7.15); RED BLOOD COUNT 4.39 mill/uL (4.20-5.60); RED CELL DISTRI WIDTH 16.9 % (11.5-15.5)
[2021-03-05 16:40] LABS: URINE BILIRUBIN - DIPSTICK NEGATIVE (NEGATIVE); URINE BLOOD DIPSTICK NEGATIVE (NEGATIVE); URINE COLOR YELLOW; URINE GLUCOSE - DIPSTICK >=1000 mg/dL (NEGATIVE); URINE KETONE NEGATIVE (NEGATIVE); URINE LEUK ESTERASE NEGATIVE (NEGATIVE); URINE PROTEIN - DIPSTICK NEGATIVE (NEG-TRACE); URINE SPECIFIC GRAVITY 1.015; URINE UROBILINOGEN - DIPSTICK 0.2 E.U./dL (0.2)
[2021-03-05 16:41] LABS: URINE NITRITE - DIPSTICK NEGATIVE (Negative)
[2021-03-05 16:50] LABS: ALBUMIN 3.6 g/dL (3.2-5.0); ALKALINE PHOSPHATASE 184 u/l (38-126); ANION GAP 11 (6-22 (CALC)); BILIRUBIN, TOTAL 0.4 mg/dL (0.0-1.4); BUN 18 mg/dL (7-17); BUN/CREATININE RATIO 23 (12-20 (CALC)); CARBON DIOXIDE 33 mmol/l (22-30); CHLORIDE 99 mmol/l (95-108); CREATININE 0.8 mg/dL (0.5-1.0); GFR > 60 ML/MIN (>=60 (CALC)); GFR FOR AFR.AMER. > 60 ML/MIN (>=60 (CALC)); MAGNESIUM 1.8 mg/dL (1.6-2.3); POTASSIUM 4.5 mmol/l (3.5-5.1); SGOT/AST 33 u/l (14-36); SODIUM 138 mmol/l (137-146); TOTAL PROTEIN 6.7 g/dL (6.3-8.2)
[2021-03-06 00:04] VITALS: BP 108/64
== END 2021-03-06 00:43 | disposition short-term general hospital (02) ==
LOC: ED 14:24
PROVIDERS: Emergency Medicine
DX: E11.69 Type 2 diabetes mellitus with other specified complication (principal); M86.8X7 Other osteomyelitis, ankle and foot; E11.621 Type 2 diabetes mellitus with foot ulcer; L97.529 Non-pressure chronic ulcer of other part of left foot with unspecified severity; E11.40 Type 2 diabetes mellitus with diabetic neuropathy, unspecified; I10 Essential (primary) hypertension; Z89.422 Acquired absence of other left toe(s); Z79.4 Long term (current) use of insulin; Z20.822 Contact with and (suspected) exposure to COVID-19

== ENCOUNTER 2021-08-23 08:43 | Observation (INO) | payer MEDICARE ==
[~2021-08-23] VITALS: Ht 177.8 cm; Wt 127.2 kg
[2021-08-23 10:57] LABS: BUN 29 mg/dL (7-17); BUN/CREATININE RATIO 32 (12-20 (CALC)); C-REACTIVE PROTEIN 3.3 mg/dL (0-0.9); CARBON DIOXIDE 22 mmol/l (22-30); CHLORIDE 106 mmol/l (95-108); CREATININE 0.9 mg/dL (0.5-1.0); GFR FOR AFR.AMER. > 60 ML/MIN (>=60 (CALC)); GFR OTHER RACES > 60 ML/MIN (>=60 (CALC)); SODIUM 137 mmol/l (137-146)
[2021-08-23 10:58] LABS: ANION GAP 16 (6-22 (CALC))
[2021-08-23 11:12] LABS: POTASSIUM 6.5 mmol/l (3.5-5.1)
[2021-08-23 19:03] VITALS: BP 188/94
[2021-08-23 20:10] LABS: HEMATOCRIT 34.8 % (37.0-47.0); HEMOGLOBIN 10.6 g/dl (12.0-16.0); IMMATURE GRANULOCYTES 0.7 % (0.0-5.0); MEAN CELL VOLUME 78.6 fL CALC (80.0-100.0); MEAN CORPUSCULAR HGB 23.9 pG CALC (26.0-32.0); MEAN CORPUSCULAR HGB CONC 30.5 g/dL CAL (32.0-36.0); NEUT# 6.07 thou/uL (2.00-7.15); RED BLOOD COUNT 4.43 mill/uL (4.20-5.60); RED CELL DISTRI WIDTH 16.8 % (11.5-15.5)
[2021-08-23 20:36] LABS: ANION GAP 14 (6-22 (CALC)); BUN 28 mg/dL (7-17); BUN/CREATININE RATIO 29 (12-20 (CALC)); CARBON DIOXIDE 19 mmol/l (22-30); CHLORIDE 108 mmol/l (95-108); GFR FOR AFR.AMER. > 60 ML/MIN (>=60 (CALC)); GFR OTHER RACES > 60 ML/MIN (>=60 (CALC)); SODIUM 135 mmol/l (137-146)
[2021-08-23 20:59] LABS: URINE BILIRUBIN - DIPSTICK NEGATIVE (NEGATIVE); URINE BLOOD DIPSTICK TRACE-LYSED (NEGATIVE); URINE COLOR YELLOW; URINE GLUCOSE - DIPSTICK NEGATIVE (NEGATIVE); URINE KETONE NEGATIVE (NEGATIVE); URINE LEUK ESTERASE NEGATIVE (NEGATIVE); URINE PROTEIN - DIPSTICK TRACE mg/dL (NEG-TRACE); URINE SPECIFIC GRAVITY >=1.030; URINE UROBILINOGEN - DIPSTICK 0.2 E.U./dL (0.2)
[2021-08-23 21:02] LABS: URINE NITRITE - DIPSTICK NEGATIVE (Negative)
[2021-08-23 21:16] VITALS: BP 188/94
[2021-08-24 00:07] VITALS: BP 175/95
[2021-08-24 01:14] VITALS: BP 175/95
[2021-08-24 02:26] LABS: BUN 31 mg/dL (7-17); BUN/CREATININE RATIO 33 (12-20 (CALC)); CHLORIDE 108 mmol/l (95-108); CREATININE 0.9 mg/dL (0.5-1.0); GFR FOR AFR.AMER. > 60 ML/MIN (>=60 (CALC)); GFR OTHER RACES > 60 ML/MIN (>=60 (CALC)); SODIUM 136 mmol/l (137-146)
[2021-08-24 02:27] LABS: ANION GAP 10 (6-22 (CALC)); CARBON DIOXIDE 23 mmol/l (22-30); POTASSIUM 5.2 mmol/l (3.5-5.1)
[2021-08-24 03:13] VITALS: BP 114/62
[2021-08-24 05:33] LABS: HEMOGLOBIN 9.7 g/dl (12.0-16.0); MEAN CELL VOLUME 78.6 fL CALC (80.0-100.0); MEAN CORPUSCULAR HGB 23.8 pG CALC (26.0-32.0); MEAN CORPUSCULAR HGB CONC 30.3 g/dL CAL (32.0-36.0); RED BLOOD COUNT 4.07 mill/uL (4.20-5.60); RED CELL DISTRI WIDTH 17.1 % (11.5-15.5)
[2021-08-24 05:54] VITALS: BP 114/62
[2021-08-24 07:26] VITALS: BP 139/75
[2021-08-24 08:38] LABS: ANION GAP 12 (6-22 (CALC)); BUN 28 mg/dL (7-17); BUN/CREATININE RATIO 37 (12-20 (CALC)); CARBON DIOXIDE 22 mmol/l (22-30); CHLORIDE 107 mmol/l (95-108); CREATININE 0.8 mg/dL (0.5-1.0); GFR FOR AFR.AMER. > 60 ML/MIN (>=60 (CALC)); GFR OTHER RACES > 60 ML/MIN (>=60 (CALC)); SODIUM 136 mmol/l (137-146)
[2021-08-24 08:39] LABS: POTASSIUM 5.4 mmol/l (3.5-5.1)
== END 2021-08-24 12:16 | disposition home or self-care (01) ==
LOC: LAB 08:43 → MS2 18:46
PROVIDERS: Internal Medicine; ADMIT Internal Medicine; ATTEND Internal Medicine
DX: E87.5 Hyperkalemia (principal); E11.621 Type 2 diabetes mellitus with foot ulcer; L97.529 Non-pressure chronic ulcer of other part of left foot with unspecified severity; I10 Essential (primary) hypertension; E11.40 Type 2 diabetes mellitus with diabetic neuropathy, unspecified; E03.9 Hypothyroidism, unspecified; E78.5 Hyperlipidemia, unspecified; Z79.4 Long term (current) use of insulin
CPT/HCPCS: J0692; J0878

== ENCOUNTER 2022-08-16 09:28 | Day surgery (SDC) | payer MEDICARE ==
[~2022-08-16] VITALS: Ht 175.3 cm; Wt 131.5 kg
[~2022-08-16 09:28] MED LIST changes: +(None)125 MG PO; +ALLOPURINOL100 MG PO; +ALPRAZOLAM0.5 M2 PO; +BL ASPIRIN325 MG PO; +DULOXETINE HCL30 MG PO; +GABAPENTIN400 MG PO; +HUMALOG100 UNIT; +HYDROMORPHONE HC4 MG PO; +LANTUS100 UNIT; +LISINOPRIL10 MG PO; +MELATONIN10 MG PO; +METOPROL TAR25 M1 PO; +NAPROXEN500 MG PO; +PROBIOTIC DAILY1 CAP PO; +TRAZODONE100 MG PO
[2022-08-16] MEDS ORDERED: CARAFATE1 GM PO (11:02)
[2022-08-16 12:51] VITALS: BP 121/82
== END 2022-08-16 11:50 | disposition home or self-care (01) ==
LOC: ENDO 09:28 → ORM 09:45 → ENDO 09:45
PROVIDERS: ATTEND Surgery
PROC: 0DBB8ZX Excision of Ileum, Via Natural or Artificial Opening Endoscopic, Diagnostic (ICD-10-PCS; principal; 2022-08-16)
PROC: 0DBE8ZX Excision of Large Intestine, Via Natural or Artificial Opening Endoscopic, Diagnostic (ICD-10-PCS; 2022-08-16)
PROC: 0DB48ZX Excision of Esophagogastric Junction, Via Natural or Artificial Opening Endoscopic, Diagnostic (ICD-10-PCS; 2022-08-16)
PROC: 0DB78ZX Excision of Stomach, Pylorus, Via Natural or Artificial Opening Endoscopic, Diagnostic (ICD-10-PCS; 2022-08-16)
DX: K29.50 Unspecified chronic gastritis without bleeding (principal); B96.81 Helicobacter pylori [H. pylori] as the cause of diseases classified elsewhere; K44.9 Diaphragmatic hernia without obstruction or gangrene; K64.8 Other hemorrhoids; I10 Essential (primary) hypertension; E11.9 Type 2 diabetes mellitus without complications; K21.9 Gastro-esophageal reflux disease without esophagitis; F32.A Depression, unspecified; Z79.4 Long term (current) use of insulin; Z79.84 Long term (current) use of oral hypoglycemic drugs; Z86.19 Personal history of other infectious and parasitic diseases